=== PATIENT | female | born 1990 | race Caucasian/White ===

== ENCOUNTER 2018-09-30 18:34 | Emergency (ER) | payer OTHER ==
--- OUTSIDE RECORDS SUMMARY | 2018-09-30 18:36 | XMS REPORT | Clinical Summary ---
:1990 Author Organization [facility] Address [facility] [place] [address] Care Team Providers Name Role Phone Unavailable Primary Care Provider Unavailable Allergies Not on File Medications Medication Sig Dispensed Refills Start Date End Date Status QUEtiapine (SEROQUEL) Take 1 tablet by 30 tablet 1 08/17/2018 Active 100 mg mouth at bedtime tabletIndications: nightly. Bipolar affective disorder, remission status unspecified escitalopram (LEXAPRO) Take 1 tablet by 30 tablet 1 08/17/2018 Active 10 mg mouth daily. tabletIndications: Anxiety, Bipolar affective disorder, remission status unspecified busPIRone (BUSPAR) 10 Take 1 tablet by 60 tablet 1 08/17/2018 Active mg tabletIndications: mouth 2 times Anxiety daily. Active Problems No known active problems Encounters Date Type Specialty Care Team Description 08/17/2018 Office Visit Psychiatry [place] Bipolar affective disorder, remission status unspecified (Primary Dx); Bipolar affective disorder, current episode depressed, current episode severity unspecified; Substance use disorder; Anxiety; Healthcare maintenance 08/17/2018 Travel after 09/29/2017 Social History Tobacco Use Types Packs/Day Years Used Date Never Assessed Sex Assigned at Date Recorded Not on file Job Start Date Occupation Industry Not on file Not on file Not on file Travel History Travel Start Travel End No recent travel history available. Last Filed Vital Signs Vital Sign Reading Time Taken Comments Blood Pressure 114/73 08/17/2018 1:26 PM CDT Pulse 94 08/17/2018 1:26 PM CDT Temperature 37.3 C (99.1 F) 08/17/2018 1:26 PM CDT Respiratory Rate 18 08/17/2018 1:26 PM CDT Oxygen Saturation 100% 08/17/2018 1:26 PM CDT Inhaled Oxygen Concentration - - Weight 51.3 kg (113 lb) 08/17/2018 1:26 PM CDT Height 149.9 cm (4' 11") 08/17/2018 1:26 PM CDT Body Mass Index 22.82 08/17/2018 1:26 PM CDT Plan of Treatment Health Maintenance Due Date Last Done Comments Cervical Cancer Scrn (3 Yrs) 01/30/2013 IMM Influenza Seasonal Jan to June (>/=19 yrs) 01/02/2019 Results Not on fileafter 09/29/2017 Insurance Payer Benefit Plan / Subscriber ID Effective Phone Address Type Group Dates [facility] xxxxxxxxx 2018- [phone] HEALTH CHOICE STRATEGIES ent [id number] [place] [address] [facility] xxxxxxxxx 2018-Teetee [phone] HEALTH CHOICE HEALTH CHOICE nt 00 [id number] [place] [address]
--- OUTSIDE RECORDS SUMMARY | 2018-09-30 18:36 | XMS REPORT ---
:1990 [facility] Address [address] [place] [address] [address] Care Team Providers Name Role Phone Unavailable Unavailable Unavailable Problems This patient has no known problems. Allergies, Adverse Reactions, Alerts This patient has no known allergies or adverse reactions. Medications This patient has no known medications. Encounters Start End Encounter Admission Attending Care Care Encounter Date/Time Date/Time Type Type Clinicians Facility Department ID 2018-09-19 2018-09-19 Outpatient [facility] [id number] 00:00:00 00:00:00 2018-08-24 2018-08-24 Outpatient [facility] [id number] 00:00:00 00:00:00 2018-08-24 2018-08-24 Outpatient [facility] [id number] 00:00:00 00:00:00 2018-08-17 2018-08-17 Outpatient [facility] [id number] 13:26:45 13:26:45
--- OUTSIDE RECORDS SUMMARY | 2018-09-30 18:37 | XMS REPORT | Continuity of Care Document ---
:1990 Author Organization [facility] Address [address] [place] [address] Phone Care Team Providers Name Role Phone Blayne Hollis MD Unavailable Unavailable Allergies, Adverse Reactions, Alerts Substance Reaction Status lamotrigine Active Medications Medication Instructions Dosage Effective Status Comments Dates (start - stop) Seroquel 100 mg take 1 tablet by 100 MG - Active Please stop the tablet oral route every prescription for day Seroquel 50 mg/Tablets. cholecalciferol Take one capsule a - Active (vitamin D3) 50,000 week for 16 weeks unit capsule for Vit D deficiency. Lexapro 10 mg tablet take 1 tablet by 10 MG - Active oral route every day Depo-Provera 150 inject 1 milliliter 150 MG - Active mg/mL intramuscular by intramuscular syringe route every 3 months Problems Condition Effective Dates (start - stop) Clinical Status Comments No information Procedures Procedure Date No information Results Test Name Date and Time Measure Units Reference Range Abnormal Flag Status Comments No information Advance Directives Directive Yes / No Effective Date File Name No information Encounters Encounter Practice Location Reason(s) Diagnoses Date Provider Providers Description For Visit Copied on Encounter [facility] Blayne. Provider: [facility], Health & [address] [place] Hollis, [address] [place] [address] [facility], [place] [facility], [address], [place] [id number], [place], [place], [address], tel:[phone] [place] [phone] . [place], [place], tel:[phone]. [phone] tel:[phone] [facility] TC Body mass index Telma Referring [facility] (BMI) 21.0-21.9, 8 Blayne. Provider: Wellness, Health & adultBipolar 9 [address] disorder, current [place]otah Martinez Telma, [address] [place] episode mixed, [place] [address] Edi, moderatePost-trauma [place], [place] [facility], tic stress [address], [place] [id number], disorder, [facility] chronicCannabis [place], [place], [address], tel:[phone], in [phone] [place] [phone] remissionHepatitis . [place], [place], tel:+ [phone]. [phone] tel:[phone] [facility] TC Abnormal results of Telma Referring [facility] liver function Blayne. Provider: Wellness, Health & studies [address] Dakotah Martinez Telma, [address] [place] [address]i, [place], [place] [facility], [address], [place] [id number], [place], [place], [address], tel:+ [phone] [place] [address] . [place], [place], tel:[phone]. [phone] tel:[phone] [facility] TC Body mass index Telma [facility]erring [facility] (BMI) 20.0-20.9, Blayne. Provider: Wellness, Health & adultBipolar 9 [address] Wellness disorder, current [place]otah Martinez Telma, [address], [place] episode mixed, [place] [address] Edi, moderateEncounter [address], [place] Martinez [place], for contraceptive [address], [place] [id number], management, [facility] unspecified [place], [place], [address], tel:[phone] [place] 16[address] . [place], tel:[phone]. [phone] tel:[phone] [facility] TC Body mass index [facility] Referring [facility] (BMI) 20.0-20.9, 3-201 Jija. Provider: Wellness, Health & adultBipolar 9 [address] Jija [address] Wellness disorder, current [place]ah Stephenghese, , [place] episode mixed, [place] [address] Edi, moderate [address], [facility], [address], [place] [id number], [place], [place], [address], tel:[phone] [place] [address] . [place], [place], tel:[phone]. [phone] tel:[phone] [facility] TC Body mass index Iglesias Referring [facility] (BMI) 20.0-20.9, 8-201 Jija. Provider: Wellness, Health & adultBipolar 9 [address] Jija [address] Wellness disorder, current [place] Juan Iglesias, , [place] episode mixed, [place] [address] Edi, moderateEncounter [address], [facility], for contraceptive [address], [place] [id number], management, [facility] unspecified [place], [place], [address], tel:[phone] [place] 66[address]236 . [place], tel:[phone]. [phone] tel:[phone] [facility] TC Body mass index Iglesias Referring [facility] (BMI) 20.0-20.9, 0-201 Jija. Provider: Wellness, Health & adultBipolar 9 [address] Jija [address] Wellness disorder, current [place] Stephenghese, , [place] episode mixed, [place] [address] Edi, [facility], [address], [place] [id number], [place], [place], [address], tel:[phone] [place] [phone] . [place], [place], tel:[phone]. [phone] tel:[phone] [facility] TC Bipolar disorder, [place] Referring Health [facility] current episode 7-201 . Provider: Wellness, Health & mixed, [address] Wellness moderatePost-trauma [place]ah Martinez Tigrett K, [address], [place] tic stress [place] [address] Edi, disorder, [address], [place], chronicGeneralized [address], [place] [id number], anxiety [facility] [place], [place], [address], tel:[phone] dependence, in [phone] [place] [phone] remission . [place], tel:[phone]. [phone] tel:[phone] [facility] Bipolar disorder, [place] Referring Health [facility] current episode . Provider: Wellness, Health & mixed, [address] Wellness moderatePost-trauma [place]ah Martinez Tigrett K, [address], [place] tic stress [place] [address] Edi, disorder, [address], [place] F [place], chronicGeneralized [address], [place] [id number], anxiety [place], [place], [address], tel:[phone] dependence, in [phone] [place] [address] remission . [place], tel:[phone]. [phone] tel:[phone] Family History Family Member Diagnosis Age At Onset No information Immunizations Vaccine Date Status Comments No information Payers Payer name Insurance type Covered democrat ID Authorization(s) [facility] [id number] Social History Type Description Quantity Date Captured Comments Sex Female Vital Signs Date / Height Weight BMI Pulse Blood Temperature Respiratory Body Head BMI Pulse Inhaled Time: Rate Pressure Rate Surface Circumference percentile Ox Ox Area No information Chief Complaint And Reason For Visit No information Reason For Referral Reason For Referral No information Plan Of Treatment Date Type Action Status Goal Dietary management education, guidance, and completed counseling Goal Dietary management education, guidance, and completed counseling Goal Lifestyle education regarding diet completed Goal Lifestyle education regarding diet completed Goal Lifestyle education regarding diet completed Appointment Leticia Aldana BOOKED Appointment Leticia Aldana BOOKED History Of Present Illness Encounter Date Complaint History Of Present Illness No information Functional Status Date Functional Assessment No information Medications Administered Medication Instructions Dosage Effective Dates (start - stop) Status Comments No information Instructions Date Instruction Additional Information Dietary management education, Related to Body mass index (BMI) guidance, and counseling 21.0-21.9, adult Dietary management education, Related to Body mass index (BMI) guidance, and counseling 20.0-20.9, adult improving ion Seroquel C/w follow Related to Bipolar disorder, current up appt with counsellor form [facility] episode mixed, moderate follow up in a month any worsening hives - ER no hives on examination Lifestyle education regarding diet Related to Body mass index ( BMI) 20.0-20.9, adult added Seroquel DC Lamictal follow Related to Bipolar disorder , current up in 2 weeks C/w counselling at [facility] episode mixed, moderate and counsellor here weekly Lifestyle education regarding diet Related to Body mass index ( BMI) 20.0-20.9, adult + CIDI c/w weekly counselling added Related to Bipolar disorder , current Lamictal SE educated Pt to start episode mixed, moderate Lexapro in 1 weeks follow up 18-20 days Lifestyle education regarding diet Related to Body mass index ( BMI) 20.0-20.9, adult Assessments Type Assessment Date No information Goals Health Concern Goal Type Priority Status Date No information Medical Equipment Description Device [place] Device Identifier Effective Dates (start - stop ) Status No information Mental Status Date Cognitive Assessment No information Health Concerns Observation Date No information Concern Status Date No information
[2018-09-30 19:55] LABS: Absolute Lymphocytes (CBC) 2.3 K/uL (0.7-4.9); Basophils % 0.3 % (0-1.3); Eosinophils % 3.2 % (0-4.4); Hematocrit 41.2 % (36.0-45.0); Lymphocytes % 46.9 % (15.3-44.8); MPV 8.2 fL (7.6-11.3); Monocytes % 7.4 % (3.3-12.3); RBC Red Blood Cell Count 4.75 M/uL (3.86-4.86)
[2018-09-30 20:11] LABS: Albumin 4.2 g/dL (3.4-5.0); Bilirubin Direct 0.1 mg/dL (0-0.2); Bilirubin Total 0.4 mg/dL (0.2-1.0); Potassium 3.9 mmol/L (3.5-5.1); Protein, Total 7.7 g/dL (6.4-8.2)
[2018-09-30 20:25] LABS: Urine Bacteria <20 /HPF (<20); Urine Culture Reflex Order NOT NEEDED; Urine RBC NONE SEEN /HPF (NONE SEEN)
[2018-09-30 20:35] LABS: Urine Blood NEGATIVE (NEG); Urine Glucose NEGATIVE (NEG); Urine Protein NEGATIVE (NEG)
--- NOTE | 2018-09-30 21:04 | RAD REPORT ---
EXAM DESCRIPTION: CT - Abdomen Pelvis W Contrast - 09/30/2018 8:33 pm CLINICAL HISTORY: Abdominal pain with nausea. COMPARISON: none. TECHNIQUE: Computed axial tomography of the abdomen pelvis was obtained. 100 cc Isovue-300 was admin istered intravenously. Oral contrast was not requested which limits evaluation of bowel. All CT scans are performed using dose optimization technique as appropriate and may include automated exposure control or mA/KV adjustment according to patient size. FINDINGS: Left lobe of the liver is prominent. Density liver is normal Pancreas, adrenal and kidneys appear unremarkable. Spleen is borderline enlarged There is no evidence of diverticulitis. Normal appendix Contracted gallbladder IMPRESSION: Borderline splenomegaly. Contracted gallbladder
--- NOTE | 2018-09-30 21:58 | ER ---
Nurse's Notes [facility] Name: Leticia Aldana Age: 28 yrs Sex: Female : 1990 Arrival Date: 09/30/2018 Time: 18:37 Bed 17 Private MD: Diagnosis: Unspecified abdominal pain Presentation: 09/30 18:41 Presenting complaint: Patient states: "Im hurting real bad in my right side and its aj1 swollen, its been hurting for a couple days and now it feels stretched" Denies N/V/D. Denies urinary symptoms. Transition of care: patient was not received from another setting of care. Onset of symptoms was September 2018. Risk Assessment: Do you want to hurt yourself or someone else? Patient reports no desire to harm self or others. Initial Sepsis Screen: Does the patient meet any 2 criteria? No. Patient's initial sepsis screen is negative. Does the patient have a suspected source of infection? No. Patient's initial sepsis screen is negative. Care prior to arrival: None. 18:41 Method Of Arrival: Ambulatory aj1 18:41 Acuity: DAJA 3 aj1 Triage Assessment: 18:44 General: Appears in no apparent distress. uncomfortable, Behavior is calm, cooperative, aj1 appropriate for age. Pain: Complains of pain in anterior aspect of right lateral abdomen Pain currently is 8 out of 10 on a pain scale. Neuro: Level of Consciousness is awake, alert, obeys commands. Cardiovascular: Patient's skin is warm and dry. Respiratory: Airway is patent Respiratory effort is even, unlabored, Respiratory pattern is regular, symmetrical. GI: Reports lower abdominal pain, poor appetite. MANAGER FRONT OFFICE: 18:44 LMP N/A - control method aj1 Historical: - Allergies: 18:44 Sulfa (Sulfonamide Antibiotics); aj1 - Home Meds: 18:44 escitalopram oxalate 20 mg oral tab 1 tab once daily [Active]; quetiapine 100 mg oral aj1 tab 1 tab 3 times per day [Active]; buspirone 10 mg Oral tab 1 tab 2 times per day [Active]; - PMHx: 18:44 hepatitis c; Anemia; aj1 - Immunization history:: Flu vaccine is up to date. - Social history:: Smoking status: Patient uses tobacco products, smokes one-half pack cigarettes per day. - Ebola Screening: : Patient denies travel to an Ebola-affected area in the 21 days before illness onset. Screenin:55 Abuse screen: Denies threats or abuse. Denies injuries from another. Nutritional rr5 screening: No deficits noted. Tuberculosis screening: No symptoms or risk factors identified. Fall Risk IV access (20 points). Total Jones Fall Scale indicates No Risk (0-24 pts). Assessment: 19:00 General: Appears in no apparent distress. comfortable, Behavior is calm, cooperative, rr5 appropriate for age. Pain: Complains of pain in right flank Pain does not radiate. Pain currently is 8 out of 10 on a pain scale. Quality of pain is described as aching, Pain began gradually, Is intermittent. 19:00 Neuro: Level of Consciousness is awake, alert, obeys commands, Oriented to person, rr5 place, time, situation, Appropriate for age. Cardiovascular: Capillary refill < 3 seconds Patient's skin is warm and dry. Respiratory: Airway is patent Respiratory effort is even, unlabored, Respiratory pattern is regular, symmetrical. GI: Abdomen is round Bowel sounds present X 4 quads. Abd is soft and non tender. : Urine is clear, Reports pain in right flank(s). EENT: No signs and/or symptoms were reported regarding the EENT system. Derm: Skin is intact, Skin temperature is warm. Musculoskeletal: Circulation, motion, and sensation intact. Capillary refill < 3 seconds, Range of motion: intact in all extremities. 19:59 Reassessment: Patient appears in no apparent distress at this time. 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 no complaints made. awaiting for laboratory result and CT procedure. 20:40 Reassessment: Patient appears in no apparent distress at this time. Patient is alert, rr5 oriented x 3, equal unlabored respirations, skin warm/dry/pink. awaiting for result. 21:50 Reassessment: Patient appears in no apparent distress at this time. Patient is alert, rr5 oriented x 3, equal unlabored respirations, skin warm/dry/pink. ED provider mon for the blood test-extracted and sent. Reassessment:. 22:00 Reassessment: reassess by ED provider with order made before discharge. rr5 22:18 Reassessment: Patient appears in no apparent distress at this time. Patient is alert, rr5 oriented x 3, equal unlabored respirations, skin warm/dry/pink. discharge instruction given and explained without complaints made. Patient states symptoms have improved. Vital Signs: 18:44 BP 134 / 57; Pulse 66; Resp 16; Temp 97.8; Pulse Ox 100% on R/A; Weight 49.9 kg (R); aj1 Height 4 ft. 11 in. (149.86 cm) (R); 20:00 BP 103 / 66; Pulse 62; Resp 17; Pulse Ox 99% on R/A; rr5 21:00 BP 110 / 75; Pulse 69; Resp 15; Pulse Ox 99% ; rr5 22:00 BP 119 / 80; Pulse 60; Resp 17; Temp 98.1; Pulse Ox 99% ; rr5 18:44 Body Mass Index 22.22 (49.90 kg, 149.86 cm) aj1 ED Course: 18:37 Patient arrived in ED. as 18:43 Triage completed. aj1 18:44 Arm band placed on Patient placed in an exam room. aj1 18:52 Balta Gonzalez NP is PHCP. pm1 18:52 Will Murray MD is Attending Physician. pm1 19:00 Patient has correct armband on for positive identification. Bed in low position. Call rr5 light in reach. 19:13 Alphonso Funes, LILIA is Primary Nurse. rr5 19:45 Inserted saline lock: 22 gauge in left forearm, using aseptic technique. Blood rr5 collected. 20:33 CT Abd/Pelvis - IV Contrast Only In Process Unspecified. EDMS 22:20 No provider procedures requiring assistance completed. IV discontinued, intact, rr5 bleeding controlled, No redness/swelling at site. Pressure dressing applied. Administered Medications: 22:10 Drug: Bentyl 20 mg Route: PO; rr5 22:20 Follow up: Response: Medication administered at discharge. rr5 Outcome: 21:57 Discharge ordered by . pm1 22:20 Discharged to home ambulatory, with significant other. rr5 22:20 Condition: stable 22:20 Discharge instructions given to patient, Instructed on discharge instructions, follow up and referral plans. medication usage, Demonstrated understanding of instructions, follow-up care, medications, Prescriptions given X 1. 22:21 Patient left the ED. rr5 Signatures: Dispatcher [employer] EDYamila Kebede, RN RN aj1 Cris Barakat as Balta Gonzalez, FIRMWARE MANAGER FIRMWARE MANAGER pm1 Alphonso Funes, RN RN rr5
--- NOTE | 2018-09-30 21:59 | EDPHYS ---
Physician Documentation [facility] Name: Leticia Aldana Age: 28 yrs Sex: Female : 1990 Arrival Date: 09/30/2018 Time: 18:37 Bed 17 Private MD: ED Physician Will Murray HPI: 09/30 19:20 This 28 yrs old Female presents to ER via Ambulatory with complaints of right pm1 flank pain. 19:20 The patient complains of pain in the anterior aspect of right lateral abdomen. The pain pm1 does not radiate. Onset: The symptoms/episode began/occurred 2 day(s) ago. Modifying factors: The symptoms are alleviated by nothing. the symptoms are aggravated by nothing. Associated signs and symptoms: Pertinent negatives: diarrhea, dysuria, fever, nausea, vomiting. Severity of pain: in the emergency department the pain is actually worse. The patient has not experienced similar symptoms in the past. 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 - Social history:: Smoking status: Patient uses tobacco products, smokes one-half pack cigarettes per day. - Ebola Screening: : Patient denies travel to an Ebola-affected area in the 21 days before illness onset. ROS: 19:10 Constitutional: Negative for fever, chills, and weight loss, Eyes: Negative for injury, pm1 pain, redness, and discharge, ENT: Negative for injury, pain, and discharge, Neck: Negative for injury, pain, and swelling, Cardiovascular: Negative for chest pain, palpitations, and edema, Respiratory: Negative for shortness of breath, cough, wheezing, and pleuritic chest pain. 19:10 Back: Negative for injury and pain, : Negative for injury, bleeding, discharge, and swelling, MS/Extremity: Negative for injury and deformity, Skin: Negative for injury, rash, and discoloration, Neuro: Negative for headache, weakness, numbness, tingling, and seizure. 19:10 Abdomen/GI: Positive for abdominal pain, of the abdomen diffusely, Negative for nausea, vomiting, and diarrhea. Exam: 19:10 Constitutional: This is a well developed, well nourished patient who is awake, alert, pm1 and in no acute distress. Head/Face: Normocephalic, atraumatic. Eyes: Pupils equal round and reactive to light, extra-ocular motions intact. Lids and lashes normal. Conjunctiva and sclera are non-icteric and not injected. Cornea within normal limits. Periorbital areas with no swelling, redness, or edema. ENT: Nares patent. No nasal discharge, no septal abnormalities noted. Tympanic membranes are normal and external auditory canals are clear. Oropharynx with no redness, swelling, or masses, exudates, or evidence of obstruction, uvula midline. Mucous membranes moist. Neck: Trachea midline, no thyromegaly or masses palpated, and no cervical lymphadenopathy. Supple, full range of motion without nuchal rigidity, or vertebral point tenderness. No Meningismus. Chest/axilla: Normal chest wall appearance and motion. Nontender with no deformity. No lesions are appreciated. Cardiovascular: Regular rate and rhythm with a normal S1 and S2. No gallops, murmurs, or rubs. Normal PMI, no JVD. No pulse deficits. Respiratory: Lungs have equal breath sounds bilaterally, clear to auscultation and percussion. No rales, rhonchi or wheezes noted. No increased work of breathing, no retractions or nasal flaring. Abdomen/GI: Soft, non-tender, with normal bowel sounds. No distension or tympany. No guarding or rebound. No evidence of tenderness throughout. Back: No spinal tenderness. No costovertebral tenderness. Full range of motion. Skin: Warm, dry with normal turgor. Normal color with no rashes, no lesions, and no evidence of cellulitis. MS/ Extremity: Pulses equal, no cyanosis. Neurovascular intact. Full, normal range of motion. 19:10 Neuro: Orientation: is normal, Motor: is normal, moves all fours, Sensation: is normal, no obvious gross deficits. Vital Signs: 18:44 BP 134 / 57; Pulse 66; Resp 16; Temp 97.8; Pulse Ox 100% on R/A; Weight 49.9 kg (R); aj1 Height 4 ft. 11 in. (149.86 cm) (R); 20:00 BP 103 / 66; Pulse 62; Resp 17; Pulse Ox 99% on R/A; rr5 21:00 BP 110 / 75; Pulse 69; Resp 15; Pulse Ox 99% ; rr5 22:00 BP 119 / 80; Pulse 60; Resp 17; Temp 98.1; Pulse Ox 99% ; rr5 18:44 Body Mass Index 22.22 (49.90 kg, 149.86 cm) aj1 MDM: 18:58 Patient medically screened. pm1 21:56 Data reviewed: vital signs. Data interpreted: Pulse oximetry: on room air is 99 %. pm1 Interpretation: normal. 21:56 Counseling: I had a detailed discussion with the patient and/or guardian regarding: the pm1 historical points, exam findings, and any diagnostic results supporting the discharge/admit diagnosis, lab results, radiology results, the need for outpatient follow up, to return to the emergency department if symptoms worsen or persist or if there are any questions or concerns that arise at home. 09/30 19:20 Order name: Basic Metabolic Panel pm1 09/30 19:20 Order name: CBC with Diff; Complete Time: 19:59 pm1 09/30 19:20 Order name: Creatinine for Radiology pm1 09/30 19:20 Order name: Hepatic Function; Complete Time: 20:14 pm1 09/30 19:20 Order name: Lipase; Complete Time: 20:14 pm1 09/30 19:20 Order name: Urine Microscopic Only; Complete Time: 20:26 pm1 09/30 19:20 Order name: IV Saline Lock; Complete Time: 19:54 pm1 09/30 19:20 Order name: CT Abd/Pelvis - IV Contrast Only; Complete Time: 21:06 pm1 09/30 19:22 Order name: Basic Metabolic Panel; Complete Time: 20:14 EDMS 09/30 19:24 Order name: Creatinine (Radiology Only); Complete Time: 20:14 EDMS 09/30 20:05 Order name: Urine Dipstick--Ancillary (enter results); Complete Time: 20:53 ar5 09/30 20:05 Order name: Urine --Ancillary (enter results); Complete Time: 20:53 ar5 09/30 21:17 Order name: [place] Screen Profile; Complete Time: 22:13 pm1 09/30 19:20 Order name: Labs collected and sent; Complete Time: 19:54 pm1 09/30 19:20 Order name: Urine Dipstick-Ancillary (obtain specimen); Complete Time: 19:54 pm1 09/30 19:20 Order name: Urine Test (obtain specimen); Complete Time: 19:54 pm1 Administered Medications: 22:10 Drug: Bentyl 20 mg Route: PO; rr5 22:20 Follow up: Response: Medication administered at discharge. rr5 Disposition: 10/01 06:59 Co-signature as Attending Physician, Will Murray MD. rn Disposition: 09/30/18 21:57 Discharged to Home. Impression: Unspecified abdominal pain. - Condition is Stable. - Discharge Instructions: Abdominal Pain, Adult. - Prescriptions for Bentyl 20 mg Oral Tablet - take 1 tablet by ORAL route every 6 hours As needed; 20 tablet. - Medication Reconciliation Form, Thank You Letter, Antibiotic Education, Prescription Opioid Use form. - Follow up: Emergency Department; When: As needed; Reason: Worsening of condition. Follow up: Private Physician; When: 2 - 3 days; Reason: Recheck today's complaints, Continuance of care, Re-evaluation by your physician. - Problem is new. - Symptoms have improved. Signatures: Dispatcher [employer] EDMS Yamila Shetty RN RN aj1 Will Murray MD MD rn Marinas, Patrick, [employer] pm1 Alphonso Funes RN RN rr5 Corrections: (The following items were deleted from the chart) 09/30 22:21 21:57 09/30/2018 21:57 Discharged to Home. Impression: Unspecified abdominal pain. rr5 Condition is Stable. Forms are Medication Reconciliation Form, Thank You Letter, Antibiotic Education, Prescription Opioid Use. Follow up: Emergency Department; When: As needed; Reason: Worsening of condition. Follow up: Private Physician; When: 2 - 3 days; Reason: Recheck today's complaints, Continuance of care, Re-evaluation by your physician. Problem is new. Symptoms have improved. pm1
[2018-09-30] MEDS ORDERED: DICYCLOMINE HCL 10 MG CAP ONE (22:23)
== END 2018-09-30 22:21 | disposition home or self-care (01) ==
LOC: ER 18:34
DX: R10.9 Unspecified abdominal pain (principal); Z88.2 Allergy status to sulfonamides; D64.9 Anemia, unspecified; F17.210 Nicotine dependence, cigarettes, uncomplicated
CPT/HCPCS: 36415; 74177; 80048; 80076; 81003; 81015; 81025; 83690; 85025; 86308; 99284; Q9967

== ENCOUNTER 2024-08-09 15:22 | Emergency (ER) | payer OTHER ==
--- OUTSIDE RECORDS SUMMARY | 2024-08-09 15:28 | XMS REPORT | Continuity of Care Document ---
Author Name Unknown Address [address] [facility] [address] [place] [address] [facility] Address [address] [facility] [address] [place] [address] Care Team Providers Care Senior Peoplesoft Developer Name Role Phone Arlene JESSICA Linda Primary Care Physician [phone] Shabana Vincent LVN Attending Clinician Yany vailable MELITA WHARTON Attending Clinician Unavailable MELITA WHARTON Attending Clinician Unavailable STEFANI STROUD Attending Clinician Unavailable Nurse, [facility]gent Attending Clinician Unavailabl e Unknown, Attending Attending Clinician Unavailab Stefani Thomas PA-C Attending Clinician [phone] MERRY MEHTA Attending Clinician Unavail able Visit, [facility] Nurse Attending Clinician Unava ilable Mehta Merry PICHARDO Attending Clinician + Doctor Unassigned, [place] Attending Clinician U navailCHON Torres Attending Clinician Unavail able Chon Bajwa DNP Attending Clinician + [phone] PHANI BERGMAN Attending Clinician Unavailable PHANI BERGMAN Attending Clinician Unavailable JUVE MARTINEZ Attending Clinician Unavailable Juve Lu Attending Clinician [phone] Ally Rodgers Attending Clinician Unavailable Ally Rodgers Attending Clinician [phone] CARLO FENG Attending Clinician Unavailable Jung ELEVATOR INSTALLER, Carlo Attending Clinician [phone] TERRI KINCAID Attending Clinician Unavailab Terri Nichols DO Attending Clinician + [phone] JAY EARL Attending Clinician Unavail able ZULEMA CUEVA Attending Clinician UnavailEDWARD Reynolds Attending Clinician Unavailary Hanks MD, Edward Zepeda Attending Clinician + [phone] Foster Perez DO Attending Clinician [phone] Jessi SOLIMAN, Kevin Attending Clinician + Amanda Clemente MD Attending Clinician [phone] GISELE NICHOLAS Attending Clinician Unavailmendy Epstein, [facility] Physician/High Attending Clinici an Unavailable Cristopher Gisele PICHARDO Attending Clinician [phone], [facility] Attending Clinician Unavaila Aleyda Kohli MD Attending Clinician [phone] Melvin Pappas DO Attending Clinician [phone] ALEYDA CHI Attending Clinician Unavailable ALEYDA CHI Attending Clinician Unavailable Lab, [facility] Attending Clinician Unavailable 2, [facility] Attending Clinician UnavailAlex Galdamez MD Attending Clinician +[phone] ALEX PEREZ Attending Clinician Unavailable 5, [facility] Attending Clinician Unavaila Johana Strong Attending Clinician UnavailJose Kennedy MD Attending Clinician [phone] Gloria Lechuga MD Attending Clinician +[phone] UNKNOWN, ATTENDING Attending Clinician Unavailab edgar 1, [facility] Attending Clinician UnavailRYANN Franco Attending Clinician UnavailRyann Morillo Attending Clinician [phone] Kajal Sierra Attending Clinician Unavailable Jeffy Liz Attending Clinician Unavailable CECILIA ISAACS Attending Clinician Unavailable Blayne Hollis Attending Clinician UnavailJenn Perez Attending Clinician Unavailable Shawn Hopkins Attending Clinician Unavailable Craig Iglesias Attending Clinician Unavailable Lisa Marquez Attending Clinician Unavailable MELITA WHARTON Admitting Clinician Unavailable TERRI KINCAID Admitting Clinician UnavailEDWARD Cr Admitting Clinician UnavailEdward Reynolds MD Admitting Clinician Payers Payer Name Policy Type Policy Number Effective Date Expirati on Date Source MEDICAID PENDING PENDING 2023 00:00:00 Problems Condition Name Condition Details Condition Category Status Onset Date Resolution Date Last Treatment Date Treating Clinician Comments Source Depo-Prove ra contracept jaun status Depo-Prove ra contracept jaun status Disease Active 17 00:00: 00 [facility] COVID-19 virus antibody detected COVID-19 virus antibody detected Disease Active 1-14 00:00: 00 [facility] Chronic hepatitis C affecting , antepartum Chronic hepatitis C affecting , antepartum Disease Active 2020-04 2 00:00: 00 [facility] History of bipolar disorder History of bipolar disorder Disease Active 6-16 00:00: 00 [facility] History of substance abuse History of substance abuse Disease Active 11-02 00:00: 00 [facility] Hepatitis C virus infection Hepatitis C virus infection Disease Active 8 00:00: 00 [facility] Elevated LFTs Elevated LFTs Disease Active 720 00:00: 00 [facility] Mental disorder Mental disorder Disease Active Overview: Formattin g of this note might be different from the original. bipolar [facility] S/P section S/P section Disease Resolve d 1-30 00:00: 00 2021-05-21 00:00:00 2021-05-21 13:32:01 [facility] Preeclamps ia Preeclamps ia Disease Resolve d 1-30 00:00: 00 2021-05-21 00:00:00 2021-05-21 13:30:42 [facility] Supervisio n of high risk , antepartum Supervisio n of high risk , antepartum Disease Resolve d 2020-04 2- 00:00: 00 2021-05-21 00:00:00 2021-05-21 13:30:39 [facility] Bipolar disease during in third trimester Bipolar disease during in third trimester Disease Resolve d 2020-04 2- 00:00: 00 2021-05-21 00:00:00 2021-05-21 13:30:57 [facility] Nausea/vom iting in Nausea/vom iting in Disease Resolve d 7-15 00:00: 00 2021-05-21 00:00:00 2021-05-21 13:30:43 [facility] Bipolar disease during in first trimester Bipolar disease during in first trimester Disease Resolve d 7-15 00:00: 00 2021-05-21 00:00:00 2021-05-21 13:30:56 [facility] 37 weeks gestation of 37 weeks gestation of Disease Resolve d 1-26 00:00: 00 2021-05-03 00:00:00 2021-05-03 15:16:40 [facility] Minor laceration of perineum during delivery, Minor laceration of perineum during delivery, Disease Resolve d 11-02 00:00: 00 2020-09-17 00:00:00 2020-09-17 06:34:49 [facility] Smoker Smoker Disease Resolve d 11-02 00:00: 00 2020-09-17 00:00:00 2020-09-17 06:34:51 [facility] (spontaneo us vaginal delivery) (spontaneo us vaginal delivery) Disease Resolve d 11-02 00:00: 00 2020-09-17 00:00:00 2020-09-17 06:34:53 [facility] Single live Single live Disease Resolve d 8-01 00:00: 00 2020-09-17 00:00:00 2020-09-17 06:34:55 [facility] 37 weeks gestation of 37 weeks gestation of Disease Resolve d 7-31 00:00: 00 2020-09-17 00:00:00 2020-09-17 06:34:48 [facility] Susceptibl e to Varicella (non-immun e), currently in third trimester Susceptibl e to Varicella (non-immun e), currently in third trimester Disease Resolve d 7-27 00:00: 00 2020-09-17 00:00:00 2020-09-17 06:34:47 [facility] Anemia complicati ng , third trimester Anemia complicati ng , third trimester Disease Resolve d 7 00:00: 00 2020-09-17 00:00:00 2020-09-17 06:34:43 [facility] Chlamydia infection affecting in third trimester, antepartum Chlamydia infection affecting in third trimester, antepartum Disease Resolve d 7 00:00: 00 2020-09-17 00:00:00 2020-09-17 06:34:44 [facility] Depression affecting in third trimester, antepartum Depression affecting in third trimester, antepartum Disease Resolve d 7 00:00: 00 2020-09-17 00:00:00 2020-09-17 06:34:45 [facility] Gestationa l hypertensi on w/o significan t proteinuri a in 3rd trimester Gestationa l hypertensi on w/o significan t proteinuri a in 3rd trimester Disease Resolve d 7- 00:00: 00 2020-09-17 00:00:00 2020-09-17 06:34:41 [facility] Late care affecting in third trimester Late care affecting in third trimester Disease Resolve d 7-20 00:00: 00 2020-09-17 00:00:00 2020-09-17 06:34:38 [facility] uterine contractio ns in third trimester, antepartum uterine contractio ns in third trimester, antepartum Disease Resolve d 10-21 00:00: 00 2020-09-17 00:00:00 2020-09-17 06:34:35 [facility] Elevated blood-pres sure reading, without diagnosis of hypertensi on Elevated blood-pres sure reading, without diagnosis of hypertensi on Disease Resolve d 10-21 00:00: 00 2016-10-23 00:00:00 2016-10-23 20:35:58 [facility] Allergies, Adverse Reactions, Alerts Allergy Name Allergy Type Status Severity Reaction(s) Onset Date Inactive Date Treating Clinician Comments Source Sulfa (Sulfona mide Antibiot ics) propensi ty to adverse reaction s to drug Active 10-17 00:00: 00 [facility] s Sulfa (Sulfona mide Antibiot ics) propensi ty to adverse reaction s to drug Active 10-17 00:00: 00 [facility] s Sulfa (Sulfona mide Antibiot ics) Propensi ty to adverse reaction to drug Inactiv e 614 00:00: 00 Peng Sweeney Sulfa (Sulfona mide Antibiot ics) Drug Allergy Active Nausea and/or Vomiting 12 00:00: 00 [facility] SULFA (SULFONA MIDE ANTIBIOT ICS) Drug Class Active N/V 412 00:00: 00 [facility] lamotrig ine drug allergy Active 1-28 00:00: 00 [facility] s Family History Family Member Diagnosis Comments Start Date Stop Date Sourc e Brother Alive and well 2018-10-17 00:00:00 2018-10-17 00:00:00 [facility] Father Family history of hypertension 2018-10-17 00:00:00 2018-10-17 00:00:00 [facility] Mother Alive and well 2018-10-17 00:00:00 2018-10-17 00:00:00 [facility] Social History Social Habit Start Date Stop Date Quantity Comments Source Health-related Behavior 2022-06-23 00:00:00 [facility] Tobacco use and exposure 2022-04-12 00:00:00 Cigarette: Age Started: 20, Age Stopped: 2019, Years Used 2001 Quantity Details - Cigarette: 10 Cigarettes per day, Pack Year: 1001 [facility] History of tobacco use 2022-04-12 00:00:00 Ex-cigarette smoker [facility] Alcohol intake [facility] Sex Assigned At Female [facility] Sexual orientation U [facility] ASSERTION [facility] History of Social function 2022-12-23 00:00:00 2022-12-23 00:00:00 [facility] Exposure to SARS-CoV-2 (event) 2022-06-20 00:00:00 2022-06-30 09:32:00 Not sure [facility] Alcoholic beverage intake 2018-07-14 00:00:00 2018-07-14 00:00:00 Current drinker of alcohol (finding) [facility] Cigarettes smoked current (pack per day) - Reported 2016-11-25 00:00:00 2016-11-25 00:00:00 [facility] Cigarette pack-years 2016-11-25 00:00:00 2016-11-25 00:00:00 [facility] Smoking Status Start Date Stop Date Source Unknown if ever smoked [facility] Ex-smoker 2021-10-21 00:00:00 2021-10-21 00:00:00 [facility] Smokes tobacco daily 2016-11-25 00:00:00 [facility] Medications Ordered Medication Name Filled Medication Name Start Date Stop Date Current Medication? Ordering Clinician Indication Dosage Frequency Signature (SIG) Comments Components Source Macrobid 100 mg capsule 07-30 00:00: 00 Yes 1mg Peng Sweeney morpHINE (4 mg/mL) injection 4 mg 04-06 03:15: 00 04-06 03:09 :00 No 4mg 4 mg, Slow IV Push, ONCE, 1 dose, On Tue04/05/23 at 2115, [facility] ampic[facility]- sulbactam (UNASYN) 3 g in NaCl 0.9% (NS) 100 mL MINI-BAG 04-06 02:15: 04-06 03:02 :00 No 3g 3 g, IV Piggyback, ONCE, 1 dose, On Tue04/05/23 at 2015, Administer over 30 Minutes, 100 mL
Reas on for Anti-Infec tive: Documented Infection< br>Documen gianna Infection Site: HEENT
D uration of Therapy: Other (see Comments) [facility] morpHINE (4 mg/mL) injection 4 mg 04-06 00:15: 04-06 00:11 :00 No 4mg 4 mg, Slow IV Push, ONCE, 1 dose, On Tue04/05/23 at 1815, STAT [facility] iopamidol (ISOVUE 370-500 mL) injection 100 mL 04-05 23:30: 00 04-05 22:49 :00 No [id number] 100mL 100 mL, Intravenou s, ONCE, 1 dose, On Tue04/05/23 at 1730, Routine [facility] ketorolac (TORADOL) injection 30 mg 04-05 22:15: 00 04-05 22:11 :00 No 30mg 30 mg, Slow IV Push, ONCE, 1 dose, On Tue04/05/23 at 1615, Routine [facility] NaCl 0.9% (NS) bolus infusion 1,000 mL 04-05 22:15: 00 04-05 23:22 :00 No 1000mL at 999 mL/hr, 1,000 mL, IV Infusion, ONCE, 1 dose, On Tue04/05/23 at 1615, KAL [facility] amoxicillin -clavulanat e (AUGMENTIN) 875-125 mg per tablet 04-05 00:00: 00 04-20 05:59 :00 No [id number] 1{tbl} Take 1 tablet by mouth in the morning and 1 tablet in the evening. Do all this for 14 days. [facility] medroxyPROG ESTERone (DEPO-PROVE RA) syringe 150 mg 9- 19:15: 00 12-23 18:22 :00 No [id number] 150mg [facility] medroxyPROG ESTERone (DEPO-PROVE RA) syringe 150 mg 6- 18:15: 00 09-22 20:56 :00 No [id number] 150mg [facility] methylPREDN ISolone (MEDROL, PARVEEN,) 4 mg tablets 07-08 00:00: 00 Yes [id number] Take by mouth SEE-INSTRU CTIONS. follow package directions [facility] dexamethaso ne (DECADRON) injection 10 mg 07-07 21:45: 00 07-07 20:43 :00 No [id number] 10mg [facility] hydrOXYzine 50 mg tablet 07-07 00:00: 00 Yes [id number] 50mg Take 1 tablet by mouth 3 (three) times daily as needed for Itching. [facility] triamcinolo ne acetonide 0.1 % cream 07-07 00:00: 00 Yes [id number] Apply to area(s) 2 (two) times daily. [facility] famotidine 20 mg tablet 07-07 00:00: 00 07-18 04:59 :00 No [id number] 20mg Take 1 tablet by mouth in the morning and 1 tablet in the evening. Do all this for 10 days. [facility] medroxyPROG ESTERone (DEPO-PROVE RA) syringe 150 mg 06-30 17:00: 00 06-30 15:58 :00 No [id number] 150mg [facility] Seroquel 100 mg tablet 04-12 00:00: 00 No TAKE 2 TABLETS BY MOUTH EVERY DAY [facility] buspirone 5 mg tablet 04-12 00:00: 00 No take one tablet by mouth 2 times every day [facility] Abilify 2 mg tablet 04-12 00:00: 00 No 1{table t} take 1 tablet by oral route every bedtime [facility] buspirone 5 mg tablet 2021-04 00:00: 00 04-12 00:00 :00 No take 1 Tablet by oral route for week then increase to 2 times every day [facility] Abilify 2 mg tablet 2021-04 00:00: 00 04-12 00:00 :00 No 1{table t} take 1 tablet by oral route every bedtime [facility] Seroquel 100 mg tablet 2021-04 00:00: 00 04-12 00:00 :00 No TAKE 2 TABLETS BY MOUTH EVERY DAY [facility] hydroxyzine HCl 25 mg tablet 2021-04 00:00: 00 02-22 00:00 :00 No 1{table t} Q8H take 1 tablet by oral route 3 times every day as needed [facility] medroxyPROG ESTERone (DEPO-PROVE RA) syringe 150 mg - 20:45: 00 06-30 15:48 :00 No [id number] 150mg [facility] medroxyPROG ESTERone (DEPO-PROVE RA) syringe 150 mg 10-21 20:45: 00 10-21 19:58 :00 No [id number] 150mg [facility] VENLAFAXINE ER 75MG CAPSULES - 00:00: 00 02-22 00:00 :00 No TAKE 1 CAPSULE BY MOUTH EVERY DAY WITH FOOD [facility] QUETIAPINE 100MG TABLETS 5- 00:00: 00 02-22 00:00 :00 No TAKE 2 TABLETS BY MOUTH EVERY DAY [facility] medroxyPROG ESTERone (DEPO-PROVE RA) syringe 150 mg 4-25 19:15: 00 06-30 15:48 :18 No [id number] 150mg [facility] venlafaxine XR (EFFEXOR XR) 37.5 mg 24 hr capsule 05-03 14:38: 45 Yes 75mg Take 75 mg by mouth at bedtime. [facility] vitamin w/FA tablet 05-03 00:00: 00 Yes [id number] 1{tbl} Take 1 tablet by mouth daily. [facility] docusate calcium 240 mg capsule 05-03 00:00: 00 Yes [id number] 240mg Take 1 capsule by mouth once daily as needed for Constipati on. [facility] ferrous sulfate 325 mg (65 mg iron) tablet 05-03 00:00: 00 Yes [id number] 325mg Take 1 tablet by mouth 2 (two) times daily. [facility] ibuprofen 600 mg tablet 05-03 00:00: 00 Yes [id number] 600mg Take 1 tablet by mouth every 6 (six) hours as needed (Pain). Take with food or milk. [facility] vitamin w/FA tablet 05-03 00:00: 00 Yes [id number] 1{tbl} Take 1 tablet by mouth daily. [facility] HYDROcodone -acetaminop hen 5-325 mg tablet 05-03 00:00: 00 05-11 05:59 :00 No [id number] 1{tbl} Take 1 tablet by mouth every 6 (six) hours as needed (Pain scale above 4) for up to 7 days. Do not exceed 3 grams of acetaminop hen in 24 hours. Indication s: acute pain [facility] QUETIAPINE 100MG TABLETS 04-21 00:00: 00 No TAKE 2 TABLETS BY MOUTH EVERY DAY [facility] s butalbital- acetaminoph en-caff 50-325-40 mg tablet 2020-04 00:00: 00 04-15 00:00 :00 No [id number] Take 2 tabs at onset of headache. Maximum 6 tabs per day. [facility] Iron Fum & P-FA-Vit B & C No.9 (INTEGRA PLUS) 125 mg iron- 1 mg Cap 2020-04 00:00: 00 05-03 00:00 :00 No [id number] 1{each} Take 1 Each by mouth daily. [facility] Seroquel 100 mg tablet 2020-04- 00:00: 00 04-21 00:00 :00 No TAKE 2 TABLETS BY MOUTH EVERY DAY [facility] ondansetron 4 mg disintegrat ing tablet 2020-04 1-09 00:00: 00 05-03 00:00 :00 No [id number] 4mg Take 1 tablet by mouth every 8 (eight) hours as needed for Nausea and Vomiting (N/V). [facility] VENLAFAXINE ER 37.5MG CAPSULES 2020-04 0-13 00:00: 00 02-22 00:00 :00 No 1{capsu le} Q1D take 1 capsule by oral route every day with [facility] VENLAFAXINE ER 75MG CAPSULES 9-08 00:00: 00 No TAKE 1 CAPSULE BY MOUTH EVERY DAY WITH [facility] pantoprazol e (PROTONIX) 40 mg EC tablet 08 00:00: 00 05-03 00:00 :00 No [id number] 40mg Take 1 tablet by mouth daily. [facility] proMETHazin e 12.5 mg tablet 7-15 00:00: 00 05-03 00:00 :00 No [id number] 12.5mg Take 1 tablet by mouth every 4 (four) hours as needed for Nausea and Vomiting (N/V). [facility] vit 33-iron-fol ic-dha (SELECT-OB + DHA) 29 mg iron-1 mg -250 mg combo pack 6-15 00:00: 00 05-03 00:00 :00 No [id number] 1{packe t} Take 1 Packet by mouth daily. [facility] QUEtiapine 100 mg tablet 2018-04-18 00:00: 00 Yes 200mg Take 200 mg by mouth. [facility] buspirone 10 mg tablet 6-14 00:00: 00 Yes 1mg Penglaura Sweeney Bactrim DS 800 mg-160 mg tablet 09-15 00:00: 00 Yes 1mg Peng Sweeney cefdinir 300 mg capsule 09-15 00:00: 00 Yes 1mg Peng Sweeney Depo-Care Transitions Manager a 150 mg/mL intramuscul ar syringe 05-17 00:00: 00 No 1mL Q3MON inject 1 milliliter by intramuscu lar route every 3 months [facility] citalopram 40 mg tablet 10-11 00:00: 00 01-14 00:00 :00 No [id number] 40mg Take 1 tablet by mouth daily. [facility] ferrous sulfate 325 mg (65 mg iron) tablet 11-02 00:00: 00 01-14 00:00 :00 No 325mg Take 1 tablet by mouth 2 (two) times daily. [facility] Immunizations Ordered Immunization Name Filled Immunization Name Date Status Comments Source Influenza Virus Vaccine Quad IM, Preserv and ABX Free 6 MO-64 YRS (FLUCELVAX) 2 14:46:00 Completed [facility] SARS-COV-2 COVID-19 PFIZER VACCINE 2 14:46:00 Completed [facility] TDAP 2 14:46:00 Completed [facility] Varicella (varivax)(chicken pox) 2 14:46:00 Completed [facility] HPV9 2 14:46:00 Completed [facility] TDAP 2 13:30:00 Completed [facility] Varicella (varivax)(chicken pox) 2 13:30:00 Completed [facility] HPV9 2 13:30:00 Completed [facility] Influenza Virus Vaccine Quad IM, Preserv and ABX Free 6 MO-64 YRS (FLUCELVAX) 2 13:30:00 Completed [facility] SARS-COV-2 COVID-19 PFIZER VACCINE 2 13:30:00 Completed [facility] TDAP 2022-12-04 1 13:30:00 Completed [facility] Varicella (varivax)(chicken pox) 2022-12-04 1 13:30:00 Completed [facility] HPV9 2022-12-04 1 13:30:00 Completed [facility] Influenza Virus Vaccine Quad IM, Preserv and ABX Free 6 MO-64 YRS (FLUCELVAX) 2022-12-04 1 13:30:00 Completed [facility] SARS-COV-2 COVID-19 PFIZER VACCINE 2022-12-04 1 13:30:00 Completed [facility] TDAP 2022-12-04 1 00:00:00 Completed [facility] Varicella (varivax)(chicken pox) 2022-12-04 1 00:00:00 Completed [facility] HPV9 2022-12-04 1 00:00:00 Completed [facility] Influenza Virus Vaccine Quad IM, Preserv and ABX Free 6 MO-64 YRS (FLUCELVAX) 2022-12-04 1 00:00:00 Completed [facility] SARS-COV-2 COVID-19 PFIZER VACCINE 2022-12-04 1 00:00:00 Completed [facility] TDAP 2021-04-06 1 00:00:00 Completed [facility] Varicella (varivax)(chicken pox) 2021-04-06 1 00:00:00 Completed [facility] HPV9 2021-04-06 1 00:00:00 Completed [facility] Influenza Virus Vaccine Quad IM, Preserv and ABX Free 6 MO-64 YRS (FLUCELVAX) 2021-04-06 1 00:00:00 Completed [facility] SARS-COV-2 COVID-19 PFIZER VACCINE 2021-04-06 1 00:00:00 Completed [facility] TDAP 2021-04-04 3 00:00:00 Completed [facility] Varicella (varivax)(chicken pox) 2021-04-04 3 00:00:00 Completed [facility] HPV9 2021-04-04 3 00:00:00 Completed [facility] Influenza Virus Vaccine Quad IM, Preserv and ABX Free 6 MO-64 YRS (FLUCELVAX) 2022-01-1 3 00:00:00 Completed [facility] SARS-COV-2 COVID-19 PFIZER VACCINE 2021-04-04 3 00:00:00 Completed [facility] TDAP 2021-03-05 0 00:00:00 Completed [facility] Varicella (varivax)(chicken pox) 2021-03-05 0 00:00:00 Completed [facility] HPV9 2021-03-05 0 00:00:00 Completed [facility] Influenza Virus Vaccine Quad IM, Preserv and ABX Free 6 MO-64 YRS (FLUCELVAX) 2021-03-05 0 00:00:00 Completed [facility] SARS-COV-2 COVID-19 PFIZER VACCINE 2021-03-05 0 00:00:00 Completed [facility] TDAP 1 00:00:00 Completed [facility] Influenza Virus Vaccine Quad IM, Preserv and ABX Free 6 MO-64 YRS 1 00:00:00 Completed [facility] TDAP 1 00:00:00 Completed [facility] Influenza Virus Vaccine Quad IM, Preserv and ABX Free 6 MO-64 YRS 1 00:00:00 Completed [facility] TDAP 1 00:00:00 Completed [facility] Influenza Virus Vaccine Quad IM, Preserv and ABX Free 6 MO-64 YRS 1 00:00:00 Completed [facility] TDAP 1 00:00:00 Completed [facility] Influenza Virus Vaccine Quad IM, Preserv and ABX Free 6 MO-64 YRS 1 00:00:00 Completed [facility] TDAP 1 00:00:00 Completed [facility] Influenza Virus Vaccine Quad IM, Preserv and ABX Free 6 MO-64 YRS 1 00:00:00 Completed [facility] TDAP 1 00:00:00 Completed [facility] Influenza Virus Vaccine Quad IM, Preserv and ABX Free 6 MO-64 YRS 1 00:00:00 [facility]pleted [facility] [facility] 2 00:00:00 Completed [facility] Varicella (varivax)(chicken pox) 2 00:00:00 Completed [facility] HPV9 2 00:00:00 Completed [facility] SARS-COV-2 COVID-19 PFIZER VACCINE 2 00:00:00 Completed [facility] TDAP 2020-11-03 0 00:00:00 Completed [facility] Varicella (varivax)(chicken pox) 2020-11-03 0 00:00:00 Completed [facility] HPV9 2020-11-03 0 00:00:00 Completed [facility] SARS-COV-2 COVID-19 PFIZER VACCINE 2020-11-03 0 00:00:00 Completed [facility] SARS-COV-2 COVID-19 PFIZER VACCINE 0 1 00:00:00 Completed [facility] SARS-COV-2 COVID-19 PFIZER VACCINE 0 1 00:00:00 Completed [facility] SARS-COV-2 COVID-19 PFIZER VACCINE 0 1 00:00:00 Completed [facility] SARS-COV-2 COVID-19 PFIZER VACCINE 0 1 00:00:00 Completed [facility] SARS-COV-2 COVID-19 PFIZER VACCINE 0 1 00:00:00 Completed [facility] SARS-COV-2 COVID-19 PFIZER VACCINE 0 1 00:00:00 Completed [facility] Pfizer COVID-19 Vaccine Pfizer COVID-19 Vaccine 0 1 00:00:00 Completed SARS-COV-2 COVID-19 PFIZER VACCINE 0 7 00:00:00 Completed [facility] SARS-COV-2 COVID-19 PFIZER VACCINE 0 7 00:00:00 Completed [facility] SARS-COV-2 COVID-19 PFIZER VACCINE 0 7 00:00:00 Completed [facility] SARS-COV-2 COVID-19 PFIZER VACCINE 7 00:00:00 Completed [facility] SARS-COV-2 COVID-19 PFIZER VACCINE 7 00:00:00 Completed [facility] SARS-COV-2 COVID-19 PFIZER VACCINE 7 00:00:00 Completed [facility] Pfizer COVID-19 Vaccine Pfizer COVID-19 Vaccine 7 00:00:00 Completed Hep B (adult) 2018-10-02 6 00:00:00 Completed Source: New Immunization Record [facility] Hep A (adult) 2018-10-02 6 00:00:00 Completed Source: New Immunization Record [facility] HPV9 2017-04-06 1 00:00:00 Completed [facility] HPV9 2017-04-06 1 00:00:00 Completed [facility] HPV9 2017-04-06 1 00:00:00 Completed [facility] HPV9 2017-04-06 1 00:00:00 Completed [facility] HPV9 2017-04-06 1 00:00:00 Completed [facility] HPV9 2017-04-06 1 00:00:00 Completed [facility] HPV9 2017-04-06 1 00:00:00 Completed HPV9 2016-12-03 2 00:00:00 Completed [facility] HPV9 2016-12-03 2 00:00:00 Completed [facility] HPV9 2016-12-03 2 00:00:00 Completed [facility] HPV9 2016-12-03 2 00:00:00 Completed [facility] HPV9 2016-12-03 2 00:00:00 Completed [facility] HPV9 2016-12-03 2 00:00:00 Completed [facility] HPV9 2016-12-03 2 00:00:00 Completed Varicella (varivax)(chicken pox) 2 00:00:00 Completed [facility] HPV9 2 00:00:00 Completed [facility] Varicella (varivax)(chicken pox) 2 00:00:00 Completed [facility] HPV9 2 00:00:00 Completed [facility] Varicella (varivax)(chicken pox) 2 00:00:00 Completed [facility] HPV9 2 00:00:00 Completed [facility] Varicella (varivax)(chicken pox) 2 00:00:00 Completed [facility] HPV9 2 00:00:00 Completed [facility] Varicella (varivax)(chicken pox) 2 00:00:00 Completed [facility] 2 00:00:00 Completed [facility] Varicella (varivax)(chicken pox) 2 00:00:00 Completed [facility] 2 00:00:00 Completed [facility] Varicella (varivax)(chicken pox) 2 00:00:00 Completed [facility] 2 00:00:00 Completed TDAP 2016-09-03 7 00:00:00 Completed [facility] TDAP 2016-09-03 7 00:00:00 Completed [facility] TDAP 2016-09-03 7 00:00:00 Completed [facility] TDAP 2016-09-03 7 00:00:00 Completed [facility] TDAP 2016-09-03 7 00:00:00 Completed [facility] TDAP 2016-09-03 7 00:00:00 Completed [facility] TDAP 2016-09-03 7 00:00:00 Completed [facility] Vital Signs Vital Name Observation Time Observation Value Comments S ource Systolic blood pressure 2023-04-06 03:28:00 122 mm[Hg] [place] [facility] Diastolic blood pressure 2023-04-06 03:28:00 76 mm[Hg] [place] [facility] Heart rate 2023-04-06 03:28:00 84 /min [facility] Body temperature 2023-04-06 03:28:00 36.94 [place] [facility] Respiratory rate 2023-04-06 03:28:00 18 /min [facility] Oxygen saturation in Arterial blood by Pulse oximetry 2023-04-06 03:28:00 99 /min [facility] Body weight 2023-04-05 20:45:00 56.7 kg [facility] BMI 2023-04-05 20:45:00 25.25 kg/m2 [facility] Systolic blood pressure 2022-12-23 18:19:00 131 mm[Hg] [facility] Diastolic blood pressure 2022-12-23 18:19:00 63 mm[Hg] [facility] Heart rate 2022-12-23 18:19:00 73 /min [facility] Body temperature 2022-12-23 18:19:00 37.39 [place] [facility] Respiratory rate 2022-12-23 18:19:00 18 /min [facility] Body height 2022-12-23 18:19:00 149.9 cm [facility] Body weight 2022-12-23 18:19:00 56.728 kg [facility] BMI 2022-12-23 18:19:00 25.26 kg/m2 [facility] Body weight 2022-09-22 17:00:00 54.885 kg [facility] BMI 2022-09-22 17:00:00 24.44 kg/m2 [facility] Systolic blood pressure 2022-07-07 20:33:00 129 mm[Hg] [facility] Diastolic blood pressure 2022-07-07 20:33:00 84 mm[Hg] [facility] Heart rate 2022-07-07 20:33:00 75 /min [facility] Body temperature 2022-07-07 20:33:00 37.39 [place] [facility] Respiratory rate 2022-07-07 20:33:00 22 /min [facility] Body height 2022-07-07 20:33:00 149.9 cm [facility] Body weight 2022-07-07 20:33:00 47.401 kg [facility] BMI 2022-07-07 20:33:00 21.11 kg/m2 [facility] Oxygen saturation in Arterial blood by Pulse oximetry 2022-07-07 20:33:00 99 /min [facility] Systolic blood pressure 2022-06-30 15:36:00 101 mm[Hg] [facility] Diastolic blood pressure 2022-06-30 15:36:00 65 mm[Hg] [facility] Heart rate 2022-06-30 15:36:00 74 /min [facility] Body temperature 2022-06-30 15:36:00 36.72 [place] [facility] Respiratory rate 2022-06-30 15:36:00 18 /min [facility] Body height 2022-06-30 15:36:00 149.9 cm [facility] Body weight 2022-06-30 15:36:00 46.409 kg [facility] BMI 2022-06-30 15:36:00 20.66 kg/m2 [facility] Oxygen saturation in Arterial blood by Pulse oximetry 2022-06-30 15:36:00 100 /min [facility] Systolic blood pressure 2022-04-07 19:32:00 110 mm[Hg] [facility] Diastolic blood pressure 2022-04-07 19:32:00 68 mm[Hg] [facility] Heart rate 2022-04-07 19:32:00 80 /min [facility] Body temperature 2022-04-07 19:32:00 36.78 [place] [facility] Respiratory rate 2022-04-07 19:32:00 17 /min [facility] Body height 2022-04-07 19:32:00 149.9 cm [facility] Body weight 2022-04-07 19:32:00 46.539 kg [facility] BMI 2022-04-07 19:32:00 20.72 kg/m2 [facility] Systolic blood pressure 2022-01-13 18:38:00 119 mm[Hg] [facility] Diastolic blood pressure 2022-01-13 18:38:00 80 mm[Hg] [facility] Heart rate 2022-01-13 18:38:00 76 /min [facility] Body temperature 2022-01-13 18:38:00 36.67 [place] [facility] Respiratory rate 2022-01-13 18:38:00 17 /min [facility] Body height 2022-01-13 18:38:00 149.9 cm [facility] Body weight 2022-01-13 18:38:00 48.036 kg [facility] BMI 2022-01-13 18:38:00 21.39 kg/m2 [facility] Systolic blood pressure 2021-10-21 19:05:00 108 mm[Hg] [facility] Diastolic blood pressure 2021-10-21 19:05:00 69 mm[Hg] [facility] Heart rate 2021-10-21 19:05:00 82 /min [facility] Body temperature 2021-10-21 19:05:00 36.67 [place] [facility] Respiratory rate 2021-10-21 19:05:00 18 /min [facility] Body height 2021-10-21 19:05:00 149.9 cm [facility] Body weight 2021-10-21 19:05:00 53.978 kg [facility] BMI 2021-10-21 19:05:00 24.04 kg/m2 [facility] Oxygen saturation in Arterial blood by Pulse oximetry 2021-10-21 19:05:00 98 /min [place] [facility] Heart Rate 2024-07-30 14:42:00 56.00 /min Sandra en F Patel Respiratory Rate 2024-07-30 14:42:00 19.00 /min Peng F Patel BP Systolic 2024-07-30 14:42:00 119 mm[Hg] Step hen F Patel BP Diastolic 2024-07-30 14:42:00 61 mm[Hg] Boom phen F Patel Weight Measured 2024-07-30 14:42:00 114.20 pounds Peng F Patel Height Measured 2024-07-30 14:42:00 61.20 inches Peng F Patel Body Temperature 2024-07-30 14:42:00 97.30 degrees Peng Juan Sweeney Body height 2022-04-12 14:54:00 149.86 cm [facility] Body Weight 2022-04-12 14:54:00 47.083 kg [facility] Intravascular Systolic 2022-04-12 14:54:00 98 mm[Hg] [facility] Intravascular Diastolic 2022-04-12 14:54:00 65 mm[Hg] [facility] Heart Rate 2022-04-12 14:54:00 80 /min [facility] Body Temperature 2022-04-12 14:54:00 36.72 [place] [facility] Respiratory rate 2022-04-12 14:54:00 20 /min [facility] Body mass index 2022-04-12 14:54:00 20.96 kg/m2 [facility] SaO2 % BldA PulseOx 2022-04-12 14:54:00 100 /min [facility] Body height 2022-02-22 15:08:00 149.86 cm [facility] Body Weight 2022-02-22 15:08:00 46.629 kg [facility] Intravascular Systolic 2022-02-22 15:08:00 127 mm[Hg] [facility] Intravascular Diastolic 2022-02-22 15:08:00 77 mm[Hg] [facility] Heart Rate 2022-02-22 15:08:00 86 /min [facility] Body Temperature 2022-02-22 15:08:00 36.78 [place] [facility] Respiratory rate 2022-02-22 15:08:00 16 /min [facility] Body mass index 2022-02-22 15:08:00 20.76 kg/m2 [facility] SaO2 % BldA PulseOx 2022-02-22 15:08:00 99 /min [facility] BP Systolic 2018-09-15 09:37:00 129 mm[Hg] Step laura Sweeney BP Diastolic 2018-09-15 09:37:00 77 mm[Hg] Boom Sweeney Weight Measured 2018-09-15 09:37:00 110.20 pounds Peng Sweeney Height Measured 2018-09-15 09:37:00 61.20 inches Peng Sweeney Body Temperature 2018-09-15 09:37:00 98.20 degrees Peng Sweeney Heart Rate 2018-09-15 09:37:00 107.00 /min Mohan Sweeney Respiratory Rate 2018-09-15 09:37:00 17.00 /min Peng Sweeney Procedures Procedure Date / Time Performed Performing Clinician Source CT MAXILLOFACIAL/MANDIBLE W CONTRAST 2023-04-05 22:53:00 Melita Wharton [facility] COMP. METABOLIC PANEL (22974) 2023-04-05 22:05:00 Summer Whartonunde [facility] CBC WITH DIFF 2023-04-05 22:05:00 Melita Wharton [facility] POCT TEST 2023-04-05 22:02:00 Marisol Wharton [facility] CONSENT/REFUSAL FOR DIAGNOSIS AND TREATMENT 2023-04-05 20:41:40 Doctor Unassigned, [place] [facility] ASSIGNMENT OF BENEFITS 2022-12-23 18:09:37 Docto r Unassigned, [place] [facility] Established Patient Office Visit-Level Three 2022-04-12 00:00:00 [facility] Established Patient Office Visit-Level Three 2022-02-22 00:00:00 [facility] HEPATITIS B SURFACE ANTIGEN 2021-10-21 20:17:00 [facility] GC & CHLAMYDIA AMPLIFIED ASSAY 2021-10-21 20:17:00 [facility] HIV 1/2 AG-AB WITH REFLEX 2021-10-21 20:17:00 Obdulio mobley [facility] TRICHOMONAS AMPLIFIED ASSAY 2021-10-21 20:17:00 [facility] PAP SMEAR-LIQUID BASED-CP 2021-10-21 20:17:00 Obdulio mobley [facility] GALV ONLY - SYPHILIS IGG/IGM 2021-10-21 20:17:00 [facility] Established Patient Office Visit-Level Three 2020-09-10 00:00:00 [facility] Established Patient Office Visit-Level Two 2020-07-10 00:00:00 [facility] Depo-Provera injection 150mg 2020-02-25 00:00:00 [facility] THER/PROPH/DIAG INJ SC/IM 2020-02-25 00:00:00 [facility] Zithromax 250mg State X4 2019-12-20 00:00:00 [facility] Hemoglobin A1C 2019-12-14 00:00:00 [facility] Complete Blood Count (CBC) 2019-12-14 00:00:00 [facility] Syphilis Test, qualitative 2019-12-14 00:00:00 [facility] HIV-1 Ag/Ab With Reflex 2019-12-14 00:00:00 [facility] Comprehensive Metabolic Panel 2019-12-14 00:00:00 [facility] Chylmd Trach DNA Amp Probe 2019-12-14 00:00:00 [facility] N.Gonorrhea DNA Amp Prob 2019-12-14 00:00:00 [facility] Trichomonas and Jojo / Wet [place] (T&M) 2019-12-14 00:00:00 [facility] Pap Smear (Thin Prep liquid based for abnormal follow up) 2019-12-14 00:00:00 [facility] Established Patient Office Visit-Level Four 2019-12-14 00:00:00 [facility] Depo-Provera injection 150mg 2019-12-06 00:00:00 [facility] THER/PROPH/DIAG INJ SC/IM 2019-12-06 00:00:00 [facility] Established Patient Office Visit-Level Three 2019-12-06 00:00:00 [facility] Urine Test 2019-12-06 00:00:00 [facility] Established Patient Office Visit-Level Three 2019-10-02 00:00:00 [facility] Established Patient Office Visit-Level Three 2019-09-18 00:00:00 [facility] Depo-Provera injection 150mg 2019-07-20 00:00:00 [facility] THER/PROPH/DIAG INJ SC/IM 2019-07-20 00:00:00 [facility] Established Patient Office Visit-Level One 2019-07-20 00:00:00 [facility] Established Patient Office Visit-Level Three 2019-07-20 00:00:00 [facility] Established Patient Office Visit-Level Three 2019-04-20 00:00:00 [facility] Depo-Provera injection 150mg 2019-04-20 00:00:00 [facility] Urine Test 2019-04-20 00:00:00 [facility] THER/PROPH/DIAG INJ SC/IM 2019-04-20 00:00:00 [facility] EKG (electrocardiogram) 2018-10-23 00:00:00 [facility] Depo-Provera injection 150mg 2018-10-23 00:00:00 [facility] Established Patient Office Visit-Level Three 2018-10-23 00:00:00 [facility] THER/PROPH/DIAG INJ SC/IM 2018-10-23 00:00:00 [facility] Established Patient Office Visit-Level Three 2018-10-17 00:00:00 [facility] Immunaization Administration- single (subcu/intramus/) 2018-10-17 00:00:00 [facility] Hep B - Adult Dosage 2018-10-17 00:00:00 [facility] Immunaization Administration each additional vaccination 2018-10-17 00:00:00 [facility] Hep A Vaccine Adult 2018-10-17 00:00:00 [facility] Established Patient Office Visit-Level Three 2018-08-29 00:00:00 [facility] Depo-Provera injection 150mg 2018-07-27 00:00:00 [facility] ASSAY OF FREE THYROXINE 4 2018-07-27 00:00:00 [facility] Thyroid Stimulating Hormone (TSH) 2018-07-27 00:00:00 [facility] Complete Blood Count (CBC) 2018-07-27 00:00:00 [facility] Calcifediol - Vitamin D 2018-07-27 00:00:00 [facility] Lipid Panel 2018-07-27 00:00:00 [facility] Comprehensive Metabolic Panel 2018-07-27 00:00:00 [facility] Urinalysis, Auto W/O Scope 2018-07-27 00:00:00 [facility] Established Patient Office Visit-Level Three 2018-07-27 00:00:00 [facility] THER/PROPH/DIAG INJ, SC/IM 2018-07-27 00:00:00 [facility] Established Patient Office Visit-Level Two 2018-05-17 00:00:00 [facility] Established Patient Office Visit-Level Two 2018-05-01 00:00:00 [facility] Urine Test 2018-05-01 00:00:00 [facility] Depo-Provera injection 150mg 2018-05-01 00:00:00 [facility] THER/PROPH/DIAG INJ, SC/IM 2018-05-01 00:00:00 [facility] Established Patient Office Visit-Level Three 2018-04-13 00:00:00 [facility] Individual psychotherapy (20-30 min.) 2018-04-10 00:00:00 [facility] PSYTX PT&/FAMILY 60 MINUTES 2018-03-24 00:00:00 [facility] Encounters Start Date/Time End Date/Time Encounter Type Admission Type Attending [facility] Care Facility Care Department Encounter ID Source 2021-12-31 13:05:24 Outpatient CHW [id number] [facility] 2024-08-09 13:53:20 2024-08-09 13:53:20 Outpatient [facility] [id number] Peng Sweeney 2024-07-30 14:37:13 2024-07-30 14:37:13 Outpatient [facility] [id number] Peng Sweeney 2024-07-30 00:00:00 2024-07-30 00:00:00 Outpatient Visit [facility] [id number] Peng Sweeney 2019-04-13 00:00:00 2024-05-19 03:05:14 Orders Only Shabana Vincent Shanelle M [facility] [id number] [facility] 2023-04-05 14:46:00 2023-04-05 21:31:00 Emergency X MELITA WHARTON [facility] ERT [id number] [facility] 2023-04-05 14:46:00 2023-04-05 21:31:00 Emergency Melita Wharton [facility] [id number] [facility] 2023-04-05 13:30:00 2023-04-05 16:19:42 Outpatient R [facility] [id number] [facility] 2023-04-05 13:30:00 2023-04-05 13:45:00 Nurse Visit Nurse, Reinaldo Urgent Unknown[facility] 1..114 [id number] [facility] 2023-03-17 14:45:00 2023-03-17 14:45:00 [facility] [id number] 2022-12-23 13:30:00 2022-12-23 13:45:00 Nurse Visit Visit, Reinaldo-Rmchp Nurse Merry Mehta [facility] 1..114 [id number] [facility] 2022-12-23 13:30:00 2022-12-23 13:30:00 [facility] [id number] [facility] 2022-12-23 00:00:00 2022-12-23 00:00:00 Orders Only Doctor Unassigned, [place] [facility] 1.114 [id number] [facility] 2022-12-18 09:15:00 2022-12-18 09:15:00 [facility] [id number] [facility] 2022-12-16 13:30:00 2022-12-16 13:30:00 Outpatient R CHON BAJWA [facility] [id number] [facility] 2022-09-22 10:30:00 2022-09-22 10:32:23 Outpatient R CHON BAJWA [facility] [id number] [facility] 2022-09-22 10:30:00 2022-09-22 10:32:23 Nurse Visit Visit, [facility] Nurse Chon Bajwa [facility] FINANCIAL REPORTING DIRECTOR [facility] 1..840.114 [id number] [facility] 2022-09-22 10:30:00 2022-09-22 10:30:00 Outpatient R CHON BAJWA [facility] [id number] [facility] 2022-08-04 15:15:00 2022-08-04 15:15:00 Outpatient R PHANI BERGMAN BRENT [facility] [id number] [facility] 2022-07-07 15:15:00 2022-07-07 16:12:25 Outpatient R JUVE MARTINEZ [facility] [id number] [facility] 2022-07-07 15:15:00 2022-07-07 16:12:25 Urgent Care Juve Martinez Unknown, Attending [facility] 1..840.114 350.1.13.10 4.2.7.2.686 [id number] [facility] 2022-06-30 09:45:00 2022-06-30 10:58:13 Outpatient R CHON BAJWA [facility] [id number] [facility] 2022-06-30 09:45:00 2022-06-30 10:58:13 Office Visit Chon Bajwa [facility] FINANCIAL REPORTING DIRECTOR [facility] 1.2.840.114 350.1.13.10 4.2.7.2.686 [id number] [facility] 2022-06-23 14:30:00 2022-06-23 14:30:[address] [facility] [id number] [facility] 2022-06-23 14:30:00 2022-06-23 14:30:00 Outpatient Ally Rodgers RO [id number] 27-44ba-85b [id number] 9af [id number] [facility] 2022-04-12 14:40:00 2022-04-12 14:40:00 Outpatient Ana Maria Allyary [facility] [id number] [facility] 2022-04-12 14:40:00 2022-04-12 14:40:00 Meliton gee Patient Office Visit-Matthew Stephens Ally Rodgers RO [id number] 27-44ba-85b [id number] 9af [id number] [facility] 2022-04-07 14:00:00 2022-04-07 14:00:00 Outpatient CHON WELCH [facility] [id number] [facility] 2022-04-07 14:00:00 2022-04-07 14:00:00 Nurse Visit Visit, Reinaldo-Rmchp Nurse Chon Bajwa [facility] FINANCIAL REPORTING DIRECTOR [facility] .2.840.114 350.1.13.10 4.2.7.2.686 [id number] 130 [id number] [facility] 2022-03-24 12:01:00 2022-03-24 12:01:[address] [facility] [id number] [facility] 2022-03-24 12:01:00 2022-03-24 12:01:00 Outpatient Ally Rodgers [id number] 27-44ba-85b [id number] 9af [id number] [facility] 2022-03-22 11:25:00 2022-03-22 11:25:[address] [facility] [facility] [id number] [facility] 2022-03-22 11:25:00 2022-03-22 11:25:00 Outpatient Ally Rodgers [id number] 27-44ba-85b [id number] 9af [id number] [facility] 2022-03-04 13:40:00 2022-03-04 13:40:[address] [facility] [facility] [id number] [facility] 2022-03-04 13:40:00 2022-03-04 13:40:00 Outpatient Ally Rodgers [id number] 27-44ba-85b [id number] 9af [id number] [facility] 2022-02-23 14:17:00 2022-02-23 14:17:[address] [facility] [facility] [id number] [facility] 2022-02-23 14:17:00 2022-02-23 14:17:00 Outpatient Ally Rodgers [id number] 27-44ba-85b [id number] 9af [id number] [facility] 2022-02-22 15:00:00 2022-02-22 15:00:00 Outpatient Ally Rodgers [facility] [id number] [facility] 2022-02-22 15:00:00 2022-02-22 15:00:00 Meliton gee Patient Office Visit-Matthew Stephens Ally Rodgers [id number] 27-44ba-85b [id number] 9af [id number] [facility] 2022-01-13 13:30:00 2022-01-13 13:52:49 Outpatient CARLO HILLMAN [facility] [id number] [facility] 2022-01-13 13:30:00 2022-01-13 13:52:49 Nurse Visit Visit, Reinaldo-Rmchp Carlo Smith [facility] FINANCIAL REPORTING DIRECTOR [facility] 1.2.840.114 350.1.13.10 4.2.7.2.686 [id number] 130 [id number] [facility] 2021-12-28 07:02:00 2021-12-28 07:02:00 Outpatient Ally Rodgers W [id number] [facility] 2021-12-28 07:02:00 2021-12-28 07:02:00 Outpatient Ally Rodgers [id number] 27-44ba-85b [id number] 9af [id number] [facility] 2021-11-25 13:16:00 2021-11-25 13:16:00 Outpatient Ally Rodgers CHW [id number] [facility] 2021-11-25 13:16:00 2021-11-25 13:16:00 Outpatient Ally Rodgers [id number] 27-44ba-85b [id number] 9af [id number] [facility] 2021-10-21 14:00:00 2021-10-21 15:25:56 Office Visit Jung, Carlo [facility] FINANCIAL REPORTING DIRECTOR [facility] 1.840.114 350.1.13.10 4.2.7.2.686 [id number] 130 [id number] [facility] 2021-10-21 14:00:00 2021-10-21 15:25:56 Outpatient Ankita [facility] [id number] [facility] 2021-10-21 14:00:00 2021-10-21 14:00:00 Outpatient Ankita [facility]ENG [facility] [id number] [facility] 2021-10-21 00:00:00 2021-10-21 00:00:00 Orders Only Doctor Unassigned, Niobrara [facility] 1.840.114 350.1.13.10 4.2.7.2.686 [id number] [facility] 2021-10-19 10:15:00 2021-10-19 10:15:00 [facility] [id number] [facility] 2021-09-08 14:07:00 2021-09-08 15:20:00 Emergency X TERRI KINCAID [facility] ERT [id number] [facility] 2021-09-08 14:07:00 2021-09-08 15:20:00 Emergency Terri Kincaid [facility] 1.840.114 350.1.13.10 4.2.7.2.686 [id number] [facility] 2021-09-08 09:51:00 2021-09-08 11:44:00 Emergency JAY BEDOYA [facility] [id number] [facility] 2021-08-28 08:07:00 2021-08-28 08:07:00 Outpatient Ally Rodgers Conchita W [id number] [facility] 2021-08-28 08:07:00 2021-08-28 08:07:00 Outpatient Ally Rodgers CHConchita [id number] 27-44ba-85b [id number] 9af -t [id number] [facility] 2021-07-27 13:30:00 2021-07-27 14:06:38 Nurse Visit Visit, [facility] Nurse Carlo Feng [facility] FINANCIAL REPORTING DIRECTOR [facility] ..840.114 350.1.13.10 4.2.7.2.686 [id number] 130 [id number] [facility] 2021-07-27 13:30:00 2021-07-27 13:30:00 Outpatient CARLO HILLMAN [facility] [id number] [facility] 2021-07-10 15:41:00 2021-07-10 15:41:00 Outpatient Ally Rodgers Conchita CHW [id number] [facility] 2021-06-11 12:45:00 2021-06-11 12:45:00 Outpatient CALRO HILLMAN [facility] [id number] [facility] 2021-05-25 14:30:00 2021-05-25 14:30:00 Outpatient ZULEMA VERA [facility] [id number] [facility] 2021-05-21 12:45:00 2021-05-21 13:46:31 Outpatient CHON WELCH [facility] [id number] [facility] 2021-05-21 12:45:00 2021-05-21 13:46:31 Routine Visit Carlo Feng Shauntrell [facility] FINANCIAL REPORTING DIRECTOR [facility] ..840.114 350.1.13.10 4.2.7.2.686 [id number] 130 [id number] [facility] 2021-05-11 13:30:00 2021-05-11 14:12:12 Nurse Visit Visit, Reinaldo-Rmchp Nurse Chon Bajwa [facility] FINANCIAL REPORTING DIRECTOR [facility] 1.2.840.114 350.1.13.10 4.2.7.2.686 [id number] 130 [id number] [facility] 2021-05-11 13:30:00 2021-05-11 13:30:00 Outpatient R CHON BAJWA [facility] [id number] [facility] 2021-05-04 00:00:00 2021-05-04 00:00:00 Patient Secure Msg Doctor Unassigned, Niobrara [facility] 1.2.840.114 350.1.13.10 4.2.7.2.686 [id number] [facility] 2021-04-29 19:32:00 2021-05-03 14:38:00 Inpatient P EDWARD HANKS [facility] [id number] [facility] 2021-04-29 19:32:00 2021-05-03 14:38:00 Hospital Encounter Edward Hanks [facility] 1.2.840.114 350.1.13.10 4.2.7.2.686 [id number] [facility] 2021-04-30 06:30:00 2021-04-30 17:50:00 Anesthesia Event Foster Perez Javier [facility] 1.2.840.114 350.1.13.10 4.2.7.2.686 [id number] [facility] 2021-04-30 14:05:00 2021-04-30 16:02:00 Surgery Amanda Clemente [facility] 1.2.840.114 350.1.13.10 4.2.7.2.686 [id number] [facility] 2021-04-29 19:32:00 2021-04-29 19:32:00 Inpatient P HANKS, EDWARD [facility] [id number] [facility] 2021-04-29 15:15:00 2021-04-29 16:29:39 Outpatient GISELE CASILLAS [facility] [id number] [facility] 2021-04-29 15:15:00 2021-04-29 16:29:39 Routine Visit Risk, Reinaldo-Rmp Physician/H Gisele Jimenez [facility] FINANCIAL REPORTING DIRECTOR [facility] 1..840.114 350.1.13.10 4.2.7.2.686 [id number] 130 [id number] [facility] 2021-04-29 15:15:00 2021-04-29 16:29:39 Outpatient GISELE CASILLAS [facility] [id number] [facility] 2021-04-29 10:30:00 2021-04-29 11:00:00 Regulatory Auditor Visit 3, [facility] 1..840.114 350.1.13.10 4.2.7.2.686 [id number] [facility] 2021-04-29 10:30:00 2021-04-29 10:30:00 Outpatient P ALEYDA CHI SANGEETA [facility] [id number] [facility] 2021-04-29 10:30:00 2021-04-29 10:30:00 Outpatient P ALEYDA CHI SANGEETA [facility] [id number] [facility] 2021-04-29 10:30:00 2021-04-29 10:30:00 Outpatient P ALEYDA CHI SANGEETA [facility] [id number] [facility] 2021-04-22 11:00:00 2021-04-22 11:00:00 Outpatient CHON WELCH [facility] [id number] [facility] 2021-04-21 10:00:00 2021-04-21 10:45:20 Regulatory Auditor Visit Lab, Reinaldo-Rmchp Chon Bajwa [facility] FINANCIAL REPORTING DIRECTOR [facility] 1.2.840.114 350.1.13.10 4.2.7.2.686 [id number] 130 [id number] [facility] 2021-04-21 10:00:00 2021-04-21 10:00:00 Outpatient CHON WELCH [facility] [id number] [facility] 2021-04-21 08:12:00 2021-04-21 08:12:[address] [facility] [id number] [facility] 2021-04-21 08:12:00 2021-04-21 08:12:00 Outpatient Ally Rodgers [id number] 27-44ba-85b [id number] 9af [id number] [facility] 2021-04-17 00:00:00 2021-04-17 00:00:00 Telephone Gisele Nicholas [facility] FINANCIAL REPORTING DIRECTOR [facility] 1.2.840.114 350.1.13.10 4.2.7.2.686 [id number] [facility] 2021-04-16 00:00:00 2021-04-16 00:00:00 Patient Secure Msg Gisele Nicholas [facility] FINANCIAL REPORTING DIRECTOR [facility] 1.2.840.114 350.1.13.10 4.2.7.2.686 [id number] 130 [id number] [facility] 2021-04-15 08:15:00 2021-04-15 09:38:16 Outpatient GISELE CASILLAS [facility] [id number] [facility] 2021-04-15 08:15:00 2021-04-15 09:38:16 Routine Visit Risk, [facility] Physician/H Chon Ramos Karen L [facility] FINANCIAL REPORTING DIRECTOR [facility] 1.840.114 350.1.13.10 4.2.7.2.686 [id number] [facility] 2021-04-10 15:45:00 2021-04-10 15:45:00 Outpatient CARLO HILLMAN [facility] [id number] [facility] 2021-04-10 11:00:00 2021-04-10 11:30:00 Regulatory Auditor Visit 2, [facility] Aleyda Galvez Antonio [facility] 1..840.114 350.1.13.10 4.2.7.2.686 [id number] [facility] 2021-04-10 11:00:00 2021-04-10 11:00:00 Outpatient ALEX HARRIS [facility] [id number] [facility] 2021-04-10 00:00:00 2021-04-10 00:00:00 RefGisele Chatman [facility] FINANCIAL REPORTING DIRECTOR [facility] 1..840.114 350.1.13.10 4.2.7.2.686 [id number] 130 [id number] [facility] 2021-04-01 14:00:00 2021-04-01 14:00:00 Outpatient CARLO HILLMAN [facility] [id number] [facility] 2021-04-01 10:30:00 2021-04-01 10:30:00 Outpatient ALEYDA GARCIA SANGEETA [facility] [id number] [facility] 2021-03-23 00:00:00 2021-03-23 00:00:00 Patient Secure Gisele Teague [facility] FINANCIAL REPORTING DIRECTOR [facility] 1.2.840.114 350.1.13.10 4.2.7.2.686 [id number] 130 [id number] [facility] 2021-03-18 10:00:00 2021-03-18 11:27:52 [id number] 2021-03-18 10:00:00 2021-03-18 11:27:52 Routine Visit Risk, [facility] FINANCIAL REPORTING DIRECTOR [facility] 1.2.840.114 350.1.13.10 4.2.7.2.686 [id number] [facility] 2021-03-04 14:30:00 2021-03-04 15:42:44 Outpatient R GISELE NICHOLAS [facility] [id number] [facility] 2021-03-04 14:30:00 2021-03-04 15:42:44 Routine Visit Risk, Reinaldo-[facility] Physician/H nicola Nicholas [facility] FINANCIAL REPORTING DIRECTOR [facility] 1.2840.114 350.1.13.10 4.2.7.2.686 [id number] 130 [id number] [facility] 2021-03-04 10:42:28 2021-03-04 11:48:15 Regulatory Auditor Visit 3, [facility] Room Aleyda Chi [facility] 1.2840.114 350.1.13.10 4.2.7.2.686 [id number] [facility] 2021-03-04 10:30:00 2021-03-04 10:30:00 Outpatient P [facility] [id number] [facility] 2021-02-23 14:09:00 2021-02-23 14:09:[address] [facility] CHW [id number] [facility] 2021-02-23 14:09:00 2021-02-23 14:09:00 Outpatient Ally Rodgers [id number] 27-44ba-85b [id number] 9af [id number] [facility] 2021-02-19 13:00:00 2021-02-19 13:57:06 Outpatient GISELE CASILLAS [facility] [id number] [facility] 2021-02-19 12:42:29 2021-02-19 13:57:06 Regulatory Auditor Visit Lab, SonjaGisele Henning [facility] FINANCIAL REPORTING DIRECTOR [facility] ..840.114 350.1.13.10 4.2.7.2.686 [id number] [facility] 2021-02-19 13:00:00 2021-02-19 13:00:00 Outpatient GISELE CASILLAS [facility] [id number] [facility] 2021-02-18 15:46:46 2021-02-18 16:49:18 Routine Visit Risk, [facility] Gisele Jimenez [facility] FINANCIAL REPORTING DIRECTOR [facility] 1..840.114 350.1.13.10 4.2.7.2.686 [id number] 130 [id number] [facility] 2021-02-18 15:15:00 2021-02-18 16:49:18 Outpatient GISELE CASILLAS [facility] [id number] [facility] 2021-02-18 15:15:00 2021-02-18 16:49:18 Outpatient GISELE CASILLAS [facility] [id number] [facility] 2021-02-11 13:15:00 2021-02-11 13:15:00 Outpatient R GISELE NICHOLAS [facility] [id number] [facility] 2021-02-09 00:00:00 2021-02-09 00:00:00 Patient Secure Gisele Teague [facility] FINANCIAL REPORTING DIRECTOR [facility] 1.20.114 350.1.13.10 4.2.7.2.686 [id number] 130 [id number] [facility] 2021-02-06 00:00:00 2021-02-06 00:00:00 Patient Secure Giseel Teague [facility] FINANCIAL REPORTING DIRECTOR [facility] 1..114 350.1.13.10 4.2.7.2.686 [id number] 130 [id number] [facility] 2021-02-05 00:00:00 2021-02-05 00:00:00 Refill Gisele Nicholas [facility] FINANCIAL REPORTING DIRECTOR [facility] 1..114 350.1.13.10 4.2.7.2.686 [id number] 130 [id number] [facility] 2021-02-03 12:57:18 2021-02-03 13:27:18 Regulatory Auditor Visit 5, [facility] Aleyda Galvez [facility] 1..114 350.1.13.10 4.2.7.2.686 [id number] 104 [id number] [facility] 2021-02-03 13:00:00 2021-02-03 13:00:00 Outpatient P ALEYDA CHI [facility] [id number] [facility] 2021-02-03 00:00:00 2021-02-03 00:00:00 Patient Secure Gisele Teague [facility] FINANCIAL REPORTING DIRECTOR [facility] 1.2.840.114 350.1.13.10 4.2.7.2.686 [id number] 130 [id number] [facility] 2021-01-30 08:17:04 2021-01-30 08:25:44 Regulatory Auditor Visit Lab, [facility] Garett [facility] FINANCIAL REPORTING DIRECTOR [facility] 1.2840.114 350.1.13.10 4.2.7.2.686 [id number] 130 [id number] [facility] 2021-01-30 08:00:00 2021-01-30 08:00:00 Outpatient CHON WELCH [facility] [id number] [facility] 2021-01-24 00:00:00 2021-01-24 00:00:00 Patient Secure Gisele Teague [facility] FINANCIAL REPORTING DIRECTOR [facility] 1.840.114 350.1.13.10 4.2.7.2.686 [id number] 130 [id number] [facility] 2021-01-21 14:00:00 2021-01-21 15:36:07 Outpatient GISELE CASILLAS [facility] [id number] [facility] 2021-01-21 13:53:25 2021-01-21 15:36:07 Routine Visit Risk, [facility] Physician/H Gisele Jimenez [facility] FINANCIAL REPORTING DIRECTOR [facility] 1.2840.114 350.1.13.10 4.2.7.2.686 [id number] 130 [id number] [facility] 2021-01-21 14:00:00 2021-01-21 14:00:00 Outpatient GISELE CASILLAS [facility] [id number] [facility] 2021-01-14 13:29:00 2021-01-14 13:29:[address] [facility] [id number] [facility] 2021-01-14 13:29:00 2021-01-14 13:29:00 Outpatient Ally Rodgers CHW [id number] 27-44ba-85b [id number] 9af [id number] [facility] 2021-01-05 00:00:00 2021-01-05 00:00:00 Telephone Gisele Nicholas [facility] FINANCIAL REPORTING DIRECTOR [facility] 1.0.114 350.1.13.10 4.2.7.2.686 [id number] 130 [id number] [facility] 2021-01-02 10:00:37 2021-01-02 11:15:37 Regulatory Auditor Visit 5, [facility] Room [facility] Alex [facility] 1..114 350.1.13.10 4.2.7.2.686 [id number] [facility] 2021-01-02 10:00:00 2021-01-02 10:00:00 Outpatient P [facility] [id number] [facility] 2021-01-02 09:45:00 2021-01-02 09:45:00 Outpatient P [facility] [id number] [facility] 2021-01-02 00:00:00 2021-01-02 00:00:00 Orders Only Doctor Unassigned, Niobrara [facility] 1..114 350.1.13.10 4.2.7.2.686 [id number] [facility] 2020-12-31 11:04:03 2020-12-31 11:40:45 Office Visit Johana Lee Joseph W [facility] 1..114 350.1.13.10 4.2.7.2.686 [id number] 104 [id number] [facility] 2020-12-31 11:15:00 2020-12-31 11:15:00 Outpatient P [facility] [id number] [facility] 2020-12-25 00:00:00 2020-12-25 00:00:00 Gisele Alvarez [facility] FINANCIAL REPORTING DIRECTOR [facility] 1.2.840.114 350.1.13.10 4.2.7.2.686 [id number] [facility] 2020-12-24 13:45:00 2020-12-24 13:45:00 Outpatient P [facility] [id number] [facility] 2020-12-23 00:00:00 2020-12-23 00:00:00 Gisele Alvarez [facility] FINANCIAL REPORTING DIRECTOR [facility] 1.2.840.114 350.1.13.10 4.2.7.2.686 [id number] 130 [id number] [facility] 2020-12-21 00:00:00 2020-12-21 00:00:00 Gisele Alvarez [facility] FINANCIAL REPORTING DIRECTOR [facility] 1.2.840.114 350.1.13.10 4.2.7.2.686 [id number] 130 [id number] [facility] 2020-12-19 00:00:00 2020-12-19 00:00:00 Gisele Alvarez [facility] FINANCIAL REPORTING DIRECTOR [facility] 1.2.840.114 350.1.13.10 4.2.7.2.686 [id number] 130 [id number] [facility] 2020-12-17 00:00:00 2020-12-17 00:00:00 Gisele Alvraez [facility] FINANCIAL REPORTING DIRECTOR [facility] 1.2.840.114 350.1.13.10 4.2.7.2.686 [id number] 130 [id number] [facility] 2020-12-15 00:00:00 2020-12-15 00:00:00 Hussein Nicholas Gisele Nicho [facility] FINANCIAL REPORTING DIRECTOR [facility] 1.2.840.114 350.1.13.10 4.2.7.2.686 [id number] 130 [id number] [facility] 2020-12-13 00:00:00 2020-12-13 00:00:00 Hussein Nicholas Gisele Torre [facility] FINANCIAL REPORTING DIRECTOR [facility] 1.2.840.114 350.1.13.10 4.2.7.2.686 [id number] 130 [id number] [facility] 2020-12-11 00:00:00 2020-12-11 00:00:00 Hussein Nicholas Gisele Nicho [facility] FINANCIAL REPORTING DIRECTOR [facility] 1.2.840.114 350.1.13.10 4.2.7.2.686 [id number] 130 [id number] [facility] 2020-12-10 13:04:34 2020-12-10 14:00:53 Routine Visit Risk, Reinaldo-Rmchp Physician/H Gisele Jimenez [facility] FINANCIAL REPORTING DIRECTOR [facility] 1.2.840.114 350.1.13.10 4.2.7.2.686 [id number] 130 [id number] [facility] 2020-12-10 13:59:00 2020-12-10 13:59:00 Outpatient Ally Rodgers CHConchita [id number] [facility] 2020-12-10 13:59:00 2020-12-10 13:59:00 Outpatient Ally Rodgers [id number] 27-44ba-85b [id number] [facility] 2020-12-10 13:00:00 2020-12-10 13:00:00 Outpatient GISELE CASILLAS [facility] [id number] [facility] 2020-12-09 17:32:00 2020-12-09 17:32:00 Outpatient Ally Rodgers [facility] [id number] [facility] 2020-12-09 00:00:00 2020-12-09 00:00:00 Gisele Alvarez [facility] FINANCIAL REPORTING DIRECTOR [facility] 1.2.840.114 350.1.13.10 4.2.7.2.686 [id number] [facility] 2020-11-21 00:00:00 2020-11-21 00:00:00 Patient Secure Gisele Teague [facility] FINANCIAL REPORTING DIRECTOR [facility] 1.2.840.114 350.1.13.10 4.2.7.2.686 [id number] [facility] 2020-11-20 14:20:09 2020-11-20 14:42:10 Routine Visit Risk, Reinaldo-Rmchp Physician/H Gisele Jimenez [facility] FINANCIAL REPORTING DIRECTOR [facility] 1.2.840.114 350.1.13.10 4.2.7.2.686 [id number] [facility] 2020-11-20 13:00:00 2020-11-20 13:00:00 Outpatient GISELE CASILLAS [facility] [id number] [facility] 2020-11-06 11:15:00 2020-11-06 11:15:00 Outpatient P [facility] [id number] [facility] 2020-10-30 13:04:39 2020-10-30 13:43:03 Routine Visit Risk, Reinaldo-Rmchp Physician/H Gisele Jimenez [facility] FINANCIAL REPORTING DIRECTOR [facility] 1.2.840.114 350.1.13.10 4.2.7.2.686 [id number] [facility] 2020-10-30 13:00:00 2020-10-30 13:00:00 Outpatient GISELE CASILLAS [facility] [id number] [facility] 2020-10-22 05:45:00 2020-10-22 05:45:[address] [facility] [id number] [facility] 2020-10-21 15:08:00 2020-10-21 15:08:00 Outpatient Ally Rodgers Conchita W [id number] [facility] 2020-10-16 15:15:00 2020-10-16 15:15:00 Outpatient GISELE CASILLAS [facility] [id number] [facility] 2020-10-13 08:37:00 2020-10-13 08:37:[address] [facility] [id number] [facility] 2020-10-02 13:15:00 2020-10-02 13:15:00 Outpatient GISELE CASILLAS [facility] [id number] [facility] 2020-10-02 00:00:00 2020-10-02 00:00:00 Telephone Gisele Nicholas [facility] FINANCIAL REPORTING DIRECTOR [facility] 1.2.840.114 350.1.13.10 4.2.7.2.686 [id number] 2020-09-18 17:57:50 2020-09-18 19:05:05 Urgent Care Gloria Lechuga [facility] 1.2.840.114 350.1.13.10 4.2.7.2.686 [id number] 2020-09-18 17:45:00 2020-09-18 17:45:00 Outpatient R UNKNOWN, ATTENDING [facility] [id number] [facility] 2020-09-18 00:00:00 2020-09-18 00:00:00 Case Management GriceldazayraJamirceleste [facility] FINANCIAL REPORTING DIRECTOR [facility] 1.2.840.114 350.1.13.10 4.2.7.2.686 [id number] 2020-09-18 00:00:00 2020-09-18 00:00:00 Abstract OctavioGerry fieldsevens [facility] FINANCIAL REPORTING DIRECTOR [facility] 1.2.840.114 350.1.13.10 4.2.7.2.686 [id number] 2020-09-17 12:57:05 2020-09-17 15:53:57 Regulatory Auditor Visit 1, [facility] 1.2.840.114 350.1.13.10 4.2.7.2.686 [id number] 2020-09-17 13:00:00 2020-09-17 13:00:00 Outpatient P [facility] [id number] [facility] 2020-09-17 00:00:00 2020-09-17 00:00:00 Telephone Chon Bajwa [facility] FINANCIAL REPORTING DIRECTOR [facility] 1.2.840.114 350.1.13.10 4.2.7.2.686 [id number] 2020-09-16 12:47:47 2020-09-16 13:59:03 Initial Visit Chon Bajwa [facility] FINANCIAL REPORTING DIRECTOR [facility] 1.2.840.114 350.1.13.10 4.2.7.2.686 [id number] 2020-09-16 12:45:00 2020-09-16 12:45:00 Outpatient R GERRY BAJWAEVENS [facility] [id number] [facility] 2020-09-11 00:00:00 2020-09-11 00:00:00 Orders Only Doctor Unassigned, [place] [facility] 1.2.840.114 350.1.13.10 4.2.7.2.686 [id number] 2020-09-10 15:15:00 2020-09-10 15:15:00 Outpatient Gisellemargarethtammy Ally RO CHW [id number] [facility] 2020-09-10 15:15:00 2020-09-10 15:15:00 Establishleslie d Patient Office Visit-Matthew torre Ally Aviles Conchita [id number] 27-44ba-85b [id number] 9af [id number] [facility] 2020-09-08 12:11:00 2020-09-08 12:11:00 Outpatient GiselleJenna choea Conchita CHW [id number] [facility] 2020-09-02 00:00:00 2020-09-02 00:00:00 Outpatient [facility] [id number] [facility] 2020-08-08 00:00:00 2020-08-08 00:00:00 Outpatient GCCOVIDV [facility] [id number] [facility] 2020-07-30 13:04:00 2020-07-30 13:04:00 Outpatient Jenna Rodgersa Conchita CHW [id number] [facility] 2020-07-10 14:35:00 2020-07-10 14:35:00 Outpatient GisellemargarethAlly munoz CHW [id number] [facility] 2020-07-10 14:35:00 2020-07-10 14:35:00 Establishe d Patient Office Visit-Matthew torre Jenna Scottary STARR [id number] 27-44ba-85b [id number] 9af [id number] [facility] 2020-07-08 22:04:00 2020-07-08 22:04:00 Outpatient Ally Rodgers CHW [id number] [facility] 2020-05-21 14:37:34 2020-05-21 15:58:20 Urgent Care Stefani Stroud [facility] 1.2.840.114 350.1.13.10 4.2.7.2.686 [id number] 2020-05-21 14:35:00 2020-05-21 14:35:00 Outpatient GAYLE HERNANDEZ [facility] [id number] [facility] 2020-04-17 09:07:00 2020-04-17 09:07:00 Outpatient Ally Rodgers CHW [id number] [facility] 2020-03-25 09:42:00 2020-03-25 09:42:00 Outpatient Ally Rodgers Conchita CHW [id number] [facility] 2020-03-10 16:00:00 2020-03-10 16:00:00 Outpatient RYANN PACHECO [facility] [id number] [facility] 2020-02-25 10:00:00 2020-02-25 10:00:00 Outpatient Walk-InKimberly CHW CHW [id number] [facility] 2020-02-25 10:00:00 2020-02-25 10:00:00 Outpatient Ally Rodgers [id number] 27-44ba-85b [id number] 9af [id number] [facility] 2020-01-21 14:50:00 2020-01-21 14:50:00 Outpatient Ally Rodgers CHW [id number] [facility] 2020-01-19 09:41:00 2020-01-19 09:41:00 Outpatient Ally Rodgers Conchita CHW [id number] [facility] 2020-01-15 15:30:21 2020-01-15 16:31:43 Office Visit Ryann Mckeon [facility] 1.2.840.114 350.1.13.10 4.2.7.2.686 [id number] 2020-01-15 15:30:00 2020-01-15 15:30:00 Outpatient RYANN PACHECO [facility] [id number] [facility] 2020-01-07 10:01:00 2020-01-07 10:01:00 Outpatient Ana Maria Ally Conchita W [id number] [facility] 2019-12-20 15:45:00 2019-12-20 15:45:00 Outpatient Walk-InKimberly CHW CHW [id number] [facility] 2019-12-20 15:45:00 2019-12-20 15:45:00 Outpatient Ana Maria Jennaary STARR [id number] 27-44ba-85b [id number] 9af [id number] [facility] 2019-12-19 21:41:00 2019-12-19 21:41:00 Outpatient Jonnyatmmy Jennaa Conchita CHW [id number] [facility] 2019-12-19 21:41:00 2019-12-19 21:41:00 Outpatient Ana Maria Jennaa Conchita [id number] 27-44ba-85b [id number] 9af [id number] [facility] 2019-12-17 11:56:00 2019-12-17 11:56:00 Outpatient Ana Maria Ally Conchita W [id number] [facility] 2019-12-14 14:30:00 2019-12-14 14:30:00 Outpatient Ana Maria Ally Conchita W [id number] [facility] 2019-12-14 14:30:00 2019-12-14 14:30:00 Establishe d Patient Office Visit-Ally Worthy [id number] 27-44ba-85b [id number] 9af [id number] [facility] 2019-12-13 12:01:00 2019-12-13 12:01:00 Outpatient Ally Rodgers [facility] [id number] [facility] 2019-12-06 13:45:00 2019-12-06 13:45:00 [facility] [id number] [facility] 2019-12-06 13:45:00 2019-12-06 13:45:00 Outpatient Ally Rodgers [id number] 27-44ba-85b [id number] 9af [id number] [facility] 2019-12-06 10:18:00 2019-12-06 10:18:00 Outpatient Ally Rodgers [facility] [id number] [facility] 2019-12-06 10:18:00 2019-12-06 10:18:00 Establishe d Patient Office Visit-Ally Corley [id number] 27-44ba-85b [id number] 9af [id number] [facility] 2019-11-27 13:01:00 2019-11-27 13:01:00 Outpatient Ally Rodgers [facility] [id number] [facility] 2019-11-19 16:04:00 2019-11-19 16:04:00 Outpatient Ally Rodgers [facility] [id number] [facility] 2019-11-08 09:30:00 2019-11-08 09:30:00 Outpatient R UNKNOWN, ATTENDING [facility] [id number] [facility] 2019-11-05 10:47:00 2019-11-05 10:47:00 Outpatient [facility] [id number] [facility] 2019-10-17 15:41:00 2019-10-17 15:41:00 Outpatient Rigo, Kajal [facility] [id number] [facility] 2019-10-04 15:37:00 2019-10-04 15:37:00 Outpatient RigoKajal munroe [facility] [id number] [facility] 2019-10-03 13:07:00 2019-10-03 13:07:00 Outpatient Jeffy Liz [facility] [id number] [facility] 2019-10-02 09:23:00 2019-10-02 09:23:00 Outpatient Shalonda Jeffy [facility] [id number] [facility] 2019-10-02 09:23:00 2019-10-02 09:23:00 Establishe d Patient Office Visit-Matthew torre Jeffy Jorge [facility] [id number] 27-44ba-85b [id number] 9af [id number] [facility] 2019-09-27 15:30:00 2019-09-27 15:30:00 Outpatient CECILIA BLANKENSHIP [facility] [id number] [facility] 2019-09-18 13:57:00 2019-09-18 13:57:00 Outpatient Holbrookeyemi [facility] [id number] [facility] 2019-09-18 13:57:00 2019-09-18 13:57:00 Establishe d Patient Office Visit-Matthew torre Kat [facility] [id number] 27-44ba-85b [id number] 9af [id number] [facility] 2019-09-17 11:31:00 2019-09-17 11:31:00 Outpatient RigoKajal munroe [facility] [id number] [facility] 2019-07-20 14:30:00 2019-07-20 14:30:00 Outpatient Walk-In, Kimberly [facility] CHW [id number] [facility] 2019-07-20 14:30:00 2019-07-20 14:30:00 Establishe d Patient Office Visit-Matthew l Nissa [facility] [id number] 27-44ba-85b [id number] 9af [id number] [facility] 2019-07-20 09:24:00 2019-07-20 09:24:[address] [facility] CHW [id number] [facility] 2019-07-20 09:24:00 2019-07-20 09:24:00 Establishe d Patient Office Visit-Matthew nicho Stephens [facility] [id number] 27-44ba-85b [id number] 9af [id number] [facility] 2019-05-14 13:32:00 2019-05-14 13:32:00 Outpatient Blayne Hollis [facility] [id number] [facility] 2019-04-20 10:40:00 2019-04-20 10:40:00 Outpatient Kajal Sierra [facility] [id number] [facility] 2019-04-20 10:40:00 2019-04-20 10:40:00 Establishleslie d Patient Office Visit-Matthew Stephens [facility] [id number] 27-44ba-85b [id number] 9af [id number] [facility] 2019-03-20 07:35:00 2019-03-20 07:35:00 Outpatient Blayne Hollis [facility] [id number] [facility] 2019-03-19 13:53:00 2019-03-19 13:53:00 Outpatient Jenn Walsh [facility] [id number] [facility] 2018-12-22 13:58:00 2018-12-22 13:58:00 Outpatient Perico Hollisard [facility] [id number] [facility] 2018-11-14 16:01:00 2018-11-14 16:01:00 Outpatient Telma Blayne [facility] [id number] [facility] 2018-10-23 13:20:00 2018-10-23 13:20:00 Outpatient Perico Hollisard [facility] [id number] [facility] 2018-10-23 13:20:00 2018-10-23 13:20:00 Meliton gee Patient Office Visit-Matthew torre Perico Fitzgeraldard [facility] [id number] 27-44ba-85b [id number] 9af [id number] [facility] 2018-10-17 13:20:00 2018-10-17 13:20:00 Outpatient Shawn Hopkins [facility] [id number] [facility] 2018-10-17 13:20:00 2018-10-17 13:20:00 Meliton gee Patient Office Visit-Matthew torre Shawn Butler [facility] [id number] 27-44ba-85b [id number] 9af [id number] [facility] 2018-09-29 12:35:00 2018-09-29 12:35:00 Outpatient Telma Blayne [facility] [id number] [facility] 2018-09-25 15:30:00 2018-09-25 15:30:00 Outpatient Perico Hollisard [facility] [id number] [facility] 2018-09-19 00:00:00 2018-09-19 00:00:00 Outpatient [facility] [id number] [facility] 2018-08-29 13:20:00 2018-08-29 13:20:00 Outpatient Perico Hollisard [facility] [id number] [facility] 2018-08-29 13:20:00 2018-08-29 13:20:00 Meliton gee Patient Office Visit-Matthew torre Blayne Fitzgerald [facility] [id number] 27-44ba-85b [id number] 9af [id number] [facility] 2018-08-24 00:00:00 2018-08-24 00:00:00 Outpatient [facility] [id number] [facility] 2018-08-24 00:00:00 2018-08-24 00:00:00 Outpatient [facility] [id number] [facility] 2018-08-17 13:26:45 2018-08-17 13:26:45 Outpatient [facility] [id number] [facility] 2018-08-03 13:38:00 2018-08-03 13:38:00 Outpatient Telma Blayne [facility] [id number] [facility] 2018-07-29 21:27:00 2018-07-29 21:27:00 Outpatient Dyllananahironak Blayne [facility] [id number] [facility] 2018-07-29 21:27:00 2018-07-29 21:27:[address] [facility] [id number] 27-44ba-85b [id number] 9af [id number] [facility] 2018-07-27 10:20:00 2018-07-27 10:20:00 Outpatient Dyllananahironak Blayne [facility] [id number] [facility] 2018-07-27 10:20:00 2018-07-27 10:20:00 Establishe d Patient Office Visit-Matthew torre Perico Fitzgeraldard [facility] [id number] 27-44ba-85b [id number] 9af [id number] [facility] 2018-06-29 07:49:00 2018-06-29 07:49:00 Outpatient Craig Iglesias [facility] [id number] [facility] 2018-05-17 15:00:00 2018-05-17 15:00:00 Outpatient Craig Iglesias [facility] [id number] [facility] 2018-05-17 15:00:00 2018-05-17 15:00:00 Establishe d Patient Office Visit-Leve l Magaly [facility] [id number] 27-44ba-85b [id number] 9af [id number] [facility] 2018-05-11 15:18:00 2018-05-11 15:18:00 Outpatient Craig Iglesias [facility] [id number] [facility] 2018-05-01 14:40:00 2018-05-01 14:40:00 Outpatient Craig Iglesias [facility] [id number] [facility] 2018-05-01 14:40:00 2018-05-01 14:40:00 Establishe d Patient Office Visit-Matthew Mckenzie [facility] [id number] 27-44ba-85b [id number] 9af [id number] [facility] 2018-04-14 15:43:00 2018-04-14 15:43:00 Outpatient Craig Iglesias [facility] [id number] [facility] 2018-04-13 13:20:00 2018-04-13 13:20:00 Outpatient Craig Iglesias [facility] [id number] [facility] 2018-04-13 13:20:00 2018-04-13 13:20:00 Establishe d Patient Office Visit-Jatine l Kat [facility] [id number] 27-44ba-85b [id number] 9af [id number] [facility] 2018-04-10 16:00:00 2018-04-10 16:00:00 Outpatient Jimmy [facility] [id number] [facility] 2018-04-10 16:00:00 2018-04-10 16:00:00 Individual psychother apy (20-30 min.) Lisa [address] [facility] [id number] 27-44ba-85b [id number] 9af [id number] [facility] 2018-03-24 10:00:00 2018-03-24 10:00:00 Outpatient Lisa Marquez [facility] [id number] [facility] 2018-03-24 10:00:00 2018-03-24 10:00:00 PSYTX PT&/FAMILY [address] [facility] [id number] 27-44ba-85b [id number] 9af [id number] [facility] Results Test Description Test Time Test Comments Results Result Co mments Source Peng Martinez [place] MAXILLOFACIAL/MANDIBLE W [id number] 01:41:00CT MAXILLOFACIAL/MANDIBLE W CONTRAST HISTORY: Maxillary/facial abscess. ?Right bottom jaw swelling due to dentalproblem COMPARISON: CT head on 09/08/2021 TECHNIQUE: Axial images of the face were obtained without IV contrast.Sagittal and coronal images were reformatted. FINDINGS: Visualized aspects ofthe brain, orbits and paranasal sinuses were withoutworrisome finding. There is right-sided facial cellulitis which I have madenumerous annotations on series 3. Additionally, likely secondary to decay in tooth #20, annotated on image 17of series 2, there is a small buccal side subperiosteal abscesswhich Ihave annotated on image 17 of series 3 and image 38 of coronal series 602,measuring approximately 1 cm cephalocaudad and perhaps 9 or so millimetersin oblique AP dimension.[facility] [id number] 22:02:00* Test Item Value Reference Range Interpretation Comme nts POCT PREG (test code = 1605) Negative On board controls acceptable with C Line (test code = 3574) Yes POCT PREG LOT # (test code = 3575) [id number] POCT PREG TEST DATE ( test code = 3576) 2024-04-06 Lab Interpretation (test cod e = [id number]) Normal [facility] Notes Date/Time Note Provider Source Peng Sanderson [facility]2024-01-02 21:30:56 Discharge education provided and discussed in detail with pt. Discussed discharge prescription(s). Pt educated on medication dose, mechanism of action, rationale for medication, medication name and route of administration. PIV dc'd, catheter intact, bleeding controlled and dressing intact. Advised to seek further medical attention for any new/prolonged/worse/concerning symptoms; advised to follow up with PCP and/or specialist as instructed. Pt verbalized understanding of all information provided. Denies any further questions at this time. Respirations even and unlabored. No acute distress noted. [id number]04 Pt is currently receiving antibiotics at this time [facility]2024-01-02 14:44:51 Leticia Aldana is a 33 year old female presenting to the ED with c/o right bottom jaw swelling due to dental problem. Seen at and referred to the ED for further evaluation. Swelling noted to right side. Speaking in full, clear sentences. AOX4, NAD, VSS [facility]
[2024-08-09 16:08] LABS: Specific Gravity 1.016 (1.005-1.030)
[2024-08-09 16:10] LABS: Specific Gravity 1.016 (1.005-1.030); Sqamous Epithelial <5 /HPF (None Seen); Urine Bacteria <20 /HPF (<20); Urine Bilirubin NEGATIVE (Negative); Urine Blood Negative (Negative); Urine Clarity Extremely Turbid (Clear); Urine Color Light-Yellow (Yellow); Urine Culture Reflex Order NOT NEEDED; Urine Glucose NEGATIVE (Negative); Urine Ketones NEGATIVE (Negative); Urine Microscopic Reflex YN ORDER UMIC; Urine Mucus Slight /HPF (None Seen); Urine Nitrite NEGATIVE (Negative); Urine Protein NEGATIVE (Negative); Urine RBC <5 /HPF (None Seen); Urine Urobilinogen Normal (Normal); Urine WBC None Seen /HPF (<5); Urine pH 7.5 (5.0-7.0)
[2024-08-09 17:04] LABS: Absolute Eosinophils 0.1 K/uL (0-0.5); Absolute Lymphocytes (CBC) 1.8 K/uL (0.7-4.9); Absolute Monocytes 0.4 K/uL (0.1-1.3); Absolute Neutrophil 4.1 K/uL (1.8-8.0); Basophils % 0.4 % (0-1.3); Eosinophils % 1.4 % (0-4.4); Hematocrit 40.9 % (36.0-45.0); Hemoglobin 14.4 g/dL (12.0-15.0); MCH 31.4 pg (27.0-35.0); MCHC 35.3 g/dL (32.0-36.0); MPV 7.7 fL (7.6-11.3); Monocytes % 5.8 % (3.3-12.3); Neutrophils % 64.4 % (41.7-73.7); Nucleated Red Blood Cells % 0.1 % (0-0); Platelets 208 thou/uL (152-406); RBC Red Blood Cell Count 4.59 M/uL (3.86-4.86); Red Cell Distribution Width 12.4 % (12.1-15.2)
[2024-08-09 17:21] LABS: Albumin 3.9 g/dL (3.4-5.0); Anion Gap 6.8 mEq/L (5.0-15.0); Bilirubin Total 0.2 mg/dL (0.2-1.0); Globulin 3.8 g/dL (2.3-3.5); Potassium 3.8 mEq/L (3.5-5.1); Protein, Total 7.7 g/dL (6.4-8.2)
--- NOTE | 2024-08-09 17:55 | RAD REPORT ---
EXAMINATION: CT Stone Protocol CLINICAL INDICATION: Female, 34 years old. left flank pain TECHNIQUE: CT abdomen and pelvis was performed, without IV contrast, as per department protocol. Axia l, sagittal and coronal reconstructions were obtained. One or more of the following dose reduction techniques were used: Automated exposure control, adjustment of the mA and kV according to the patien t size, and iterative reconstruction. Unless otherwise specified, incidental findings do not require dedicated imaging follow-up. COMPARISON: 09/30/2012. FINDINGS: The lack of intravenous contrast limits the sensitivity of this exam for evaluation of solid visceral organs, vascular structures, and retroperitoneum. LOWER CHEST: The visualized lung bases are clear. 5 mm right basal calcified granuloma, benign in sheryl earance. LIVER: Normal in size and contour. No focal lesion. BILIARY SYSTEM: Decompressed gallbladder limiting evaluation. No suspicious abnormalities. SPLEEN: Normal size. No focal lesion. PANCREAS: No mass, ductal dilation, or tang-pancreatic fluid. ADRENALS: Normal; no mass. KIDNEYS AND URETERS: Normal size and contour. No hydronephrosis. URINARY BLADDER: Normal contour. GASTROINTESTINAL TRACT: No evidence of bowel obstruction, significant free fluid, free air or abscess . APPENDIX: Normal appendix. LYMPH NODES: No lymphadenopathy. MUSCULOSKELETAL: No acute or suspicious osseous abnormality. ADDITIONAL FINDINGS: Dominant cyst or follicle in the right adnexal region measuring 3.4 cm. IMPRESSION: No acute or concerning abnormalities in the abdomen or pelvis, with evaluation limited by lack of IV contrast.
--- NOTE | 2024-08-09 17:58 | EDPHYS ---
Physician Documentation [facility] Name: Leticia Aldana Age: 34 yrs Sex: Female : 1990 Arrival Date: 08/09/2024 Time: 15:22 Bed Treatment Private MD: ED Physician Monroe Álvarez HPI: 08/09 16:37 This 34 yrs old Female presents to ER via Ambulatory with complaints of Possible Kidney ms3 Stone. 16:37 34-year-old female with past medical history of anemia, hepatitis C, bipolar disorder ms3 presents to the emergency department from [facility] clinic for left flank pain that has been ongoing for 13 days. Patient states she has been treated for urinary tract infection without change in her symptoms. Patient rates her discomfort 8/10 describes the pain as being constant. She endorses nausea and urinary frequency. She denies vomiting, fevers, chills. She denies any alleviating or inciting factors.. Historical: - Allergies: 15:43 Sulfa (Sulfonamide Antibiotics); iw - Home Meds: 15:43 quetiapine 100 mg Oral tab 1 tab 3 times per day [Active]; buspirone 10 mg Oral tab 1 iw tab 2 times per day [Active]; oxcarbazepine oral daily [Active]; fluoxetine 20 mg Oral tablet daily [Active]; - PMHx: 15:43 Anemia; Hepatitis C; Bipolar disorder; iw - PSHx: 15:43 section; iw - Immunization history:: Adult Immunizations not up to date. - Infectious Disease History:: Denies. - Social history:: Smoking status: Patient reports the use of cigarette tobacco products, denies chronic smoking, but will smoke occasionally, Reported history of juuling and/or vaping. ROS: 16:37 Constitutional: Negative for fever, and chills. Cardiovascular: Negative for chest ms3 pain, and palpitations. Respiratory: Negative for shortness of breath, cough, wheezing, and pleuritic chest pain, Abdomen/GI: Negative for abdominal pain, nausea, vomiting, diarrhea, and constipation, 16:37 Skin: Negative for injury, rash, and discoloration, 16:37 : Positive for urinary frequency, Exam: 16:37 Constitutional: This is a well developed, well nourished patient who is awake, alert, ms3 and in no acute distress. Cardiovascular: Regular rate and rhythm with a normal S1 and S2. No gallops, murmurs, or rubs. Normal PMI, no JVD. No pulse deficits. Respiratory: Lungs have equal breath sounds bilaterally, clear to auscultation and percussion. No rales, rhonchi or wheezes noted. No increased work of breathing, no retractions or nasal flaring. Abdomen/GI: Soft, non-tender, with normal bowel sounds. No distension or tympany. No guarding or rebound. No evidence of tenderness throughout. MS/ Extremity: Pulses equal, no cyanosis. Neurovascular intact. Full, normal range of motion. Vital Signs: 15:41 BP 118 / 73; Pulse 77; Resp 16; Temp 98.1; Pulse Ox 99% on R/A; Weight 53.52 kg; Height iw 4 ft. 11 in. ; Pain 8/10; 15:41 Body Mass Index 23.83 (53.52 kg, 149.86 cm) iw 15:41 Pain Scale: Adult iw MDM: 15:50 Medical Screening Exam initiated ms3 16:37 Differential diagnosis: nephrolithiasis, pyelonephritis, UTI. ms3 17:56 Data reviewed: vital signs, nurses notes, lab test result(s), radiologic studies, and ms3 as a result, I will discharge patient. Counseling: I had a detailed discussion with the patient and/or guardian regarding the historical points, exam findings, and any diagnostic results supporting the discharge/admit diagnosis, lab results, radiology results, the need for outpatient follow up, to return to the emergency department if symptoms worsen or persist or if there are any questions or concerns that arise at home. Special discussion: I discussed with the patient/guardian in detail that at this point there is no indication for admission to the hospital. It is understood, however, that if the symptoms persist or worsen the patient needs to return immediately for re-evaluation. ED course: Discussed CT with Dr. Mcfarlane and CT is negative. Patient to follow-up with primary care physician 2 to 3 days. All questions were answered. Return precautions discussed include worsening symptoms, or any other concerns. On reevaluation patient is alert and orient x 4, no apparent distress, nontoxic-appearing, speaking full sentences.. 08/09 15:51 Order name: CBC with Diff; Complete Time: 17:20 ms3 08/09 15:51 Order name: CMP; Complete Time: 17:24 ms3 08/09 15:51 Order name: Test, Urine; Complete Time: 16:23 ms3 08/09 15:51 Order name: UA Rfx Ghulam Cult if indicated; Complete Time: 16:23 ms3 08/09 16:41 Order name: Stone Protocol; Complete Time: 17:58 EDMS 08/09 15:51 Order name: IV Saline Lock; Complete Time: 16:56 ms3 08/09 15:51 Order name: Labs collected and sent; Complete Time: 16:56 ms3 Administered Medications: No medications were administered Disposition Summary: 08/09/24 17:58 Discharge Ordered Notes: Location: Home ms3 Condition: Stable ms3 Diagnosis - Flank pain ms3 Followup: ms3 - With: Preston Verdin DO - When: 2 - 3 days - Reason: Recheck today's complaints Discharge Instructions: - Discharge Summary Sheet ms3 - Flank Pain, Adult, Acli-ks-Dwhi ms3 Forms: - Medication Reconciliation Form ms3 - Antibiotic Education ms3 - Prescription Opioid Use ms3 - Patient Portal Instructions ms3 - Leadership Thank You Letter ms3 Signatures: Dispatcher [employer] Beatrice Mcfadden, RN RN iw Monroe Álvarez DO DO ms3 Corrections: (The following items were deleted from the chart) 15:52 15:52 CBC+H.LAB.BRZ ordered. EDMS EDMS 15:52 15:52 COMPREHENSIVE METABOLIC PANEL+C.LAB.BRZ ordered. EDMS EDMS 15:52 15:52 Test, Urine+UC.LAB.BRZ ordered. EDMS EDMS 15:52 15:52 UA Rfx Ghulam Cult if indicated+U.LAB.BRZ ordered. EDMS EDMS 15:52 15:52 Abdomen Pelvis Wo Con+CT.RAD.BRZ ordered. EDMS EDMS
--- NOTE | 2024-08-09 17:58 | ER ---
Nurse's Notes [facility] Name: Leticia Aldana Age: 34 yrs Sex: Female : 1990 Arrival Date: 08/09/2024 Time: 15:22 Bed Treatment Private MD: Diagnosis: Flank pain Presentation: 08/09 15:41 Chief complaint: Patient states: pain in left lower back X 1 days , went to [facility] and iw they thought it might be kidney stones, pain is constant, she was treated for UTI five days ago , still having pain, no blood in her urine, she still has urinae frequency. Coronavirus screen: At this time, the client does not indicate any symptoms associated with coronavirus-19. Ebola Screen: No symptoms or risks identified at this time. Initial Sepsis Screen: Does the patient meet any 2 criteria? No. Patient's initial sepsis screen is negative. Does the patient have a suspected source of infection? No. Patient's initial sepsis screen is negative. Risk Assessment: Do you want to hurt yourself or someone else? Patient reports no desire to harm self or others. Onset of symptoms was July 28, 2024. 15:41 Method Of Arrival: Ambulatory iw 15:41 Acuity: DAJA 3 iw Historical: - Allergies: 15:43 Sulfa (Sulfonamide Antibiotics); iw - Home Meds: 15:43 quetiapine 100 mg Oral tab 1 tab 3 times per day [Active]; buspirone 10 mg Oral tab 1 iw tab 2 times per day [Active]; oxcarbazepine oral daily [Active]; fluoxetine 20 mg Oral tablet daily [Active]; - PMHx: 15:43 Anemia; Hepatitis C; Bipolar disorder; iw - PSHx: 15:43 section; iw - Immunization history:: Adult Immunizations not up to date. - Infectious Disease History:: Denies. - Social history:: Smoking status: Patient reports the use of cigarette tobacco products, denies chronic smoking, but will smoke occasionally, Reported history of juuling and/or vaping. Screenin:29 [facility] ED Fall Risk Assessment (Adult) History of falling in the last 3 months, jb4 including since admission No falls in past 3 months (0 pts) Confusion or Disorientation No (0 pts) Intoxicated or Sedated No (0 pts) Impaired Gait No (0 pts) Mobility Assist Device Used No (0 pt) Altered Elimination No (0 pt) Score/Fall Risk Level 0 - 2 = Low Risk Oriented to surroundings, Maintained a safe environment. Abuse screen: Denies threats or abuse. Nutritional screening: No deficits noted. Tuberculosis screening: No symptoms or risk factors identified. Assessment: 17:00 General: Appears in no apparent distress. comfortable, Behavior is calm, cooperative, jb4 appropriate for age. Pain: Complains of pain in low back area Pain does not radiate. Pain currently is 8 out of 10 on a pain scale. Neuro: Level of Consciousness is awake, alert, obeys commands, Oriented to person, place, time, situation. Respiratory: Airway is patent Respiratory effort is even, unlabored, Respiratory pattern is regular, symmetrical. GI: Abdomen is flat, non-distended. Derm: Skin is intact, Skin is pink, warm \T\ dry. 18:29 Reassessment: Patient appears in no apparent distress at this time. Patient and/or jb4 family updated on plan of care and expected duration. Pain level reassessed. Patient is alert, oriented x 3, equal unlabored respirations, skin warm/dry/pink. Vital Signs: 15:41 BP 118 / 73; Pulse 77; Resp 16; Temp 98.1; Pulse Ox 99% on R/A; Weight 53.52 kg; Height iw 4 ft. 11 in. ; Pain 8/10; 15:41 Body Mass Index 23.83 (53.52 kg, 149.86 cm) iw 15:41 Pain Scale: Adult iw ED Course: 15:26 Patient arrived in ED. im 15:27 Monroe Álvarez DO is Attending Physician. ms3 15:43 Triage completed. iw 15:45 Arm band placed on. iw 16:44 Inserted saline lock: 22 gauge in left antecubital area, using aseptic technique. Blood jb4 collected. 16:56 CBC with Diff Sent. jb4 16:56 CMP Sent. jb4 17:09 Stone Protocol In Process Unspecified. EDMS 17:37 Patrick Griffin, RN is Primary Nurse. jb4 17:58 Preston Verdin DO is Referral Physician. ms3 18:29 Patient has correct armband on for positive identification. Bed in low position. Call jb4 light in reach. Side rails up X 1. Provided Education on: discharge isntructions. 18:29 No provider procedures requiring assistance completed. IV discontinued, intact, jb4 bleeding controlled, No redness/swelling at site. Pressure dressing applied. Administered Medications: No medications were administered Medication: 18:29 VIS not applicable for this client. jb4 Outcome: 17:58 Discharge ordered by . ms3 18:29 Discharged to home ambulatory, jb4 18:29 Condition: stable 18:29 Discharge instructions given to patient, Instructed on discharge instructions, follow up and referral plans. Demonstrated understanding of instructions, follow-up care, 18:30 Patient left the ED. jb4 Signatures: Dispatcher [employer] EDMS Beatrice Velez, RN RN iw Patrick Griffin RN RN jb4 Monroe Álvarez DO DO ms3 Dominique [place]
[2024-08-09 18:53] VITALS: BP 118/73; TEMP 98.1; O2SAT 99
== END 2024-08-09 18:30 | disposition home or self-care (01) ==
LOC: ER 15:22
DX: R10.9 Unspecified abdominal pain (principal); R35.0 Frequency of micturition; R11.0 Nausea; F17.210 Nicotine dependence, cigarettes, uncomplicated
CPT/HCPCS: 36415; 74176; 76377; 80053; 81001; 81025; 85025; 99283